=== PATIENT | female | born 1995 ===

== ENCOUNTER 2024-05-09 13:34 | Outpatient (REF) | payer OTHER, SELFPAY ==
[2024-05-09 22:22] LABS: Bacterial Vaginosis PCR NEGATIVE (Negative); Candida Group PCR NOT DETECTED (Not Detect); Candida glab krusei PCR NOT DETECTED (Not Detect); Trichomonas vaginalis PCR NOT DETECTED (Not Detect)
[2024-05-09 22:54] LABS: CT PCR NOT DETECTED (Not Detect.); NG PCR NOT DETECTED (Not Detect.)
== END 2024-05-09 13:35 | disposition home or self-care (01) ==
LOC: HO.LAB 13:34
PROVIDERS: PCP Internal Medicine; Visit Provider Advanced Practice Midwife
DX: N89.8 Other specified noninflammatory disorders of vagina (principal); Z01.419 Encounter for gynecological examination (general) (routine) without abnormal findings; Z11.51 Encounter for screening for human papillomavirus (HPV); Z72.89 Other problems related to lifestyle
CPT/HCPCS: 81515; 87255; 87491; 87591

== ENCOUNTER 2024-05-09 13:34 | Outpatient (AMB) | payer OTHER, SELFPAY ==
--- NOTE | 2024-05-09 13:59 | MHC.OFFVIS ---
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 Patient states she is diabetic and was only recently diagnosed about a month ago and she is on metformin. She tells me that she did have high blood pressure at her blood pressure was better at her visit with her doctor so she was told to stop that medicine. She brought her and child with her but they have gone elsewhere during the visit to await her completion. Patient states she moved here from the [facility] [place] about a year ago. She says she had high blood pressure in her she did have a . She says she has not had sex in about a year because her has erectile problems he is also diabetic and he uses insulin. [facility] Medical History (Updated 05/09/24 @ 15:05 by Greer Finley CNM) Diabetes Surgical History (Updated 05/09/24 @ 14:11 by Yaw Juarez CMA) S/P Family History (Updated 05/09/24 @ 14:13 by Yaw Juarez CMA) Father HTN (hypertension) Mother Diabetes HTN (hypertension) Paternal Uncle Throat cancer Social History (Updated 05/09/24 @ 14:11 by Yaw Juarez CMA) Alcohol intake: never Patient Tobacco Use Status: Never used Tobacco Female Reproductive History Menstrual Age of Menarche: 9 Duration of menses: other Date of last menstrual period: 05/14/24 (ending 05/06/23) Total pregnancies: 1 Full term: 1 History of abnormal pap smear: No (previous pap unknown date, neg .per patient) Physical Exam Vital Signs: Last Vital Signs BP 128/80 05/09/24 14:16 BMI result Body Mass Index 55.4 Const General: healthy appearing, comfortable, no acute distress, well developed and alert Nutritional Appearance: average body habitus and obese Orientation/consciousness: patient oriented x3 Limitations: no limitations HEENT Head: Yes normocephalic Neck Neck: Yes normal visual inspection Chest Chest palpation & inspection: normal inspection of the chest Breast/axilla inspection: normal inspection of the breasts and normal inspection of the axillae Breast/axilla palpation: normal palpation of the breasts and normal palpation of the axillae Resp Effort & Inspection: normal respiratory effort GI Inspection: Yes normal to inspection, No Abdominal wall edema and No distended Palpation (GI): Soft to palpation and nontender Other: Shaved there is a fresh shallow lesion which could either be consistent with a herpetic lesion or a shaving cut from this morning on patient's right labia majora it did not hurt the patient when I swabbed it for herpes culture which is more indicative of shaving cut. Vagina is pink and moist redundant vaginal tissue prevented good visualization of the cervix but it appeared pink and clear with a clear discharge from what I could see cervix extremely anterior difficult to palpate but nontender mobile uterus not palpable secondary to adipose patient did have fair to good tone with Kegel. General: Yes bladder normal to palpation External Female Exam: normal external appearance and normal appearance of the urethra Speculum Exam - Vagina: normal appearance of the vagina, normal palpation and normal vaginal discharge Speculum Exam - Cervix: normal appearance of the cervix, normal palpation and nontender Bimanual exam- vagina & uterus: normal bimanual exam, normal palpation, uterine size normal, bladder normal to palpation, consistency normal, normal palpation, uterine mobility normal, uterine shape normal, No Cervical tenderness present, non-tender and no cervical motion tenderness Bimanual Exam- Adnexa, other: normal adnexae, no masses, normal and No adnexal tenderness Neuro General: patient oriented x3 Assessment & Plan Assessment & Plan (1) Encounter for screening examination for sexually transmitted disease: Code(s): Z11.3 - Encounter for screening for infections with a predominantly sexual mode of transmission Category: Medical (2) Cervical cancer screening: Code(s): Z12.4 - Encounter for screening for malignant neoplasm of cervix Category: Medical (3) Women's annual routine gynecological examination: Code(s): Z01.419 - Encounter for gynecological examination (general) (routine) without abnormal findings Category: Medical (4) control counseling: Code(s): Z30.09 - Encounter for other general counseling and advice on contraception Category: Medical (5) Vaginal lesion: Code(s): N89.8 - Other specified noninflammatory disorders of vagina Category: Medical (6) Obesity, morbid, BMI 50 or higher: Code(s): E66.01 - Morbid (severe) obesity due to excess calories Category: Medical Plan -----Discussed in this visit the following: healthy balanced diet, regular and consistent exercise, getting recommended health screens, doing the best she can for her particular health concerns, kegel exercises, pap smear screening and followup recommendations, mammography screening and SBE, normal changes in cycles in her life stage--- . Patient says she is not interested in any kind of control because she is not sexually active I did stress to her that be very important for her to not get until she she has a healthier health status and gets her diabetes under control and loses weight. She agrees with this and says she understands and I urged her to use condoms at the very least should she resume sexual activity. ---- The vaginal lesion appeared possiblely herpetic though it did not hurt her when I swabbed it with a Q-tip for viral testing so my suspicion that it is herpetic is now much lower I did explain to her that it is possible that it is either herpetic which case we will talk more and this could be something that is longstanding or that it is simply shaving cut which is what she thinks it is. -Pap smear was done though it may be somewhat of a blind Pap smear as complete visualization of her cervix was challenge because of the excess redundant adipose tissue vaginally Discussed that if she were to consider becoming more sexually active we would need talk about a much more reliable method of control as it would really not be good for her to get until her health is in a better state she says she understands. She is going to get her fasting lab work done for her primary care provider, who was new to her as well, done tomorrow morning and this is in preparation for her appointment next Wednesday with her primary care provider to review everything she says she was told about an alistair to get the records I told her that we would let her know if anything was positive but if everything is negative it to be on the alistair though we would send her a letter about the Pap smear. I wished her well with achieving better health and getting her diabetes and weight under control I did also mentioned that it would be important to possibly have more discussions about more aggressive methods of losing weight such as medications or surgery with these are conversations for the future with her primary care provider. Discussed that it would be great for her in her to both get to healthier place. Orders: Orders Hepatitis C Antibody Today N89.8 - Other specified noninflammatory disorders of vagina, Z01.419 - Encounter for gynecological examination (general) (routine) without abnormal findings, Z11.3 - Encounter for screening for infections with a predominantly sexual mode of transmission, Z12.4 - Encounter for screening for malignant neoplasm of cervix, Z30.09 - Encounter for other general counseling and advice on contraception Syphilis Screen Today N89.8 - Other specified noninflammatory disorders of vagina, Z01.419 - Encounter for gynecological examination (general) (routine) without abnormal findings, Z11.3 - Encounter for screening for infections with a predominantly sexual mode of transmission, Z12.4 - Encounter for screening for malignant neoplasm of cervix, Z30.09 - Encounter for other general counseling and advice on contraception HIV Ab/Ag Today N89.8 - Other specified noninflammatory disorders of vagina, Z01.419 - Encounter for gynecological examination (general) (routine) without abnormal findings, Z11.3 - Encounter for screening for infections with a predominantly sexual mode of transmission, Z12.4 - Encounter for screening for malignant neoplasm of cervix, Z30.09 - Encounter for other general counseling and advice on contraception Hepatitis B Surface Antigen Today N89.8 - Other specified noninflammatory disorders of vagina, Z01.419 - Encounter for gynecological examination (general) (routine) without abnormal findings, Z11.3 - Encounter for screening for infections with a predominantly sexual mode of transmission, Z12.4 - Encounter for screening for malignant neoplasm of cervix, Z30.09 - Encounter for other general counseling and advice on contraception Coding Level of Care Code New Pt Prev Care [id number] Diagnoses Encounter for screening examination for sexually transmitted disease Z11.3 Cervical cancer screening Z12.4 Women's annual routine gynecological examination Z01.419 control counseling Z30.09 Vaginal lesion N89.8 Obesity, morbid, BMI 50 or higher E66.01
[2024-05-09 14:16] VITALS: BP 128/80; BMI 55.4
== END 2024-05-09 14:56 | disposition home or self-care (01) ==
PROVIDERS: PCP Internal Medicine; Visit Provider Advanced Practice Midwife
DX: Z01.419 Encounter for gynecological examination (general) (routine) without abnormal findings (principal); N89.8 Other specified noninflammatory disorders of vagina; E66.01 Morbid (severe) obesity due to excess calories
CPT/HCPCS: 99385; 99459

== ENCOUNTER 2024-05-09 15:40 | Outpatient (REF) | payer OTHER, SELFPAY ==
[2024-05-10 06:30] LABS: HPV 16,18/45 See PAP report
== END 2024-05-09 15:41 | disposition home or self-care (01) ==
LOC: HO.LNP 15:40
PROVIDERS: Visit Provider Advanced Practice Midwife
DX: Z01.419 Encounter for gynecological examination (general) (routine) without abnormal findings (principal)
CPT/HCPCS: 87626; 88175

== ENCOUNTER 2024-05-10 09:37 | Outpatient (REF) | payer OTHER, SELFPAY ==
[2024-05-10 10:59] LABS: Estimated Average Glucose 143 mg/dL; Hemoglobin A1C 171.5726 umol/L; Hemoglobin A1c % 6.6 % (<6.0)
[2024-05-10 11:18] LABS: Creatinine Urine 198.95 mg/dL; Microalbum/Creatinine Ratio Ur 53.7 ug/mg cr (<30)
[2024-05-10 11:22] LABS: Alanine Aminotransferase 55 U/L (0-31); Albumin Level 4.2 g/dL (3.5-5.0); Alkaline Phosphatase 83 U/L (39-117); Anion Gap 7 (12-20); Aspartate Amino Transferase 30 U/L (5-31); Bilirubin Total 0.4 mg/dL (0.0-1.0); Blood Urea Nitrogen 11 mg/dL (9-16); Calcium 9.4 mg/dL (8.4-10.2); Carbon Dioxide 30 mmol/L (22-29); Chloride 108 mmol/L (96-108); Cholesterol 138 mg/dL (<200); Estimated Glomerular Filt Rate > 60; Glucose Random 121 mg/dL (60-115); HDL Cholesterol 43 mg/dL (>40); LDL Cholesterol Calculated 77 mg/dL (<100); Potassium 4.7 mmol/L (3.3-5.1); Sodium 140 mmol/L (135-145); Thyroid Stimulating Hormone 2.43 uIU/mL (0.32-4.0); Total Protein 7.6 g/dL (6.5-8.0); Triglycerides 91 mg/dL (<150)
== END 2024-05-10 09:38 | disposition home or self-care (01) ==
LOC: HO.10HDL 09:37
PROVIDERS: Visit Provider Internal Medicine
DX: E11.9 Type 2 diabetes mellitus without complications (principal); I10 Essential (primary) hypertension; E66.01 Morbid (severe) obesity due to excess calories
CPT/HCPCS: 36415; 80053; 80061; 82043; 82570; 83036; 84443

== ENCOUNTER 2024-08-14 15:16 | Outpatient (REF) | payer OTHER, SELFPAY ==
[2024-08-14 16:05] LABS: Estimated Average Glucose 148 mg/dL; Hemoglobin A1C 166.1224 umol/L; Hemoglobin A1c % 6.8 % (<6.0); Total Hemoglobin (HGBA1C) 3265.3596 umol/L
[2024-08-14 17:34] LABS: Alanine Aminotransferase 81 U/L (0-31); Alkaline Phosphatase 83 U/L (39-117); Anion Gap 13 (12-20); Aspartate Amino Transferase 77 U/L (5-31); Bilirubin Total 0.4 mg/dL (0.0-1.0); Blood Urea Nitrogen 10 mg/dL (9-16); Calcium 9.4 mg/dL (8.4-10.2); Carbon Dioxide 27 mmol/L (22-29); Chloride 104 mmol/L (96-108); Estimated Glomerular Filt Rate > 60; Glucose Random 172 mg/dL (60-115); Potassium 4.5 mmol/L (3.3-5.1); Sodium 139 mmol/L (135-145); Total Protein 7.3 g/dL (6.5-8.0)
== END 2024-08-14 15:17 | disposition home or self-care (01) ==
LOC: HO.LAB 15:16
PROVIDERS: PCP Internal Medicine; Visit Provider Internal Medicine
DX: E11.9 Type 2 diabetes mellitus without complications (principal); E66.01 Morbid (severe) obesity due to excess calories; R74.01 Elevation of levels of liver transaminase levels; R80.8 Other proteinuria
CPT/HCPCS: 36415; 80053; 83036

== ENCOUNTER → 2024-09-25 14:44 | Outpatient (BNVA) | payer OTHER, SELFPAY | PROVIDERS: PCP Internal Medicine; Visit Provider Physician Assistant Surgical ==

== ENCOUNTER 2024-10-16 08:52 | Outpatient (AMB) | payer OTHER, SELFPAY ==
[2024-10-16 12:52] VITALS: BMI 51.4
--- NOTE | 2024-10-16 12:52 | MHC.OFFVISWM ---
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 Works overnight Breakfast: 8am (bread, boiled banana) Lunch: 2pm (rice, beans, lentil, salad) Dinner: 8pm (banana, potatoes) Snacks: one snack in afternoon, 1-2 snacks overnight (banana, scrambled eggs) Exercise: none Beverages: Coffee (1-2 cups/d with sugar), tea: none,, soda: none, juice: carott juice, ETOH: none PFSH Medical History (Updated 10/16/24 @ 12:58 by Edd Stephens MD) Anxiety Back pain Non-insulin dependent type 2 diabetes mellitus GERD (gastroesophageal reflux disease) Hypertension Morbid obesity Diabetes Surgical History (Updated 05/09/24 @ 14:11 by Yaw Juarez CMA) S/P Family History (Updated 05/09/24 @ 14:13 by Yaw Juarez CMA) Father HTN (hypertension) Mother Diabetes HTN (hypertension) Paternal Uncle Throat cancer Social History (Updated 05/09/24 @ 14:11 by Yaw Juarez CMA) Alcohol intake: never Patient Tobacco Use Status: Never used Tobacco Female Reproductive History Menstrual Age of Menarche: 9 Telehealth Telehealth Telehealth Platform: Telephone Location of provider rendering services: practice address Location of patient: address on file Patient Identification confirmed using: Name, : Yes Telehealth method: voice only Patient verbally consented to treatment: Yes Patient verbally consented to billing insurance company: Yes Patient informed of any privacy concerns related to visit: Yes Minutes spent on Phone/Video with Pt.: 45 Assessment & Plan Assessment & Plan (1) Morbid obesity: Code(s): E66.01 - Morbid (severe) obesity due to excess calories Category: Medical Plan: 1.? Plan for lap sleeve gastrectomy. If diaphragmatic or ventral hernias are present at time of surgery, these will be repaired laparoscopically as well. I emphasized the importance of close follow-up, adherence to instructions and good communication. The surgery does not replace the need to change your lifestlyle which is the cause of the obesity problem. The surgery provides the motivation to try again to change your lifestyle, it reduces the appetite and make the transition to a better lifestyle easier and doubles the amount of weight you would lose compared to doing the lifestyle change without the surgery. You will need to be on a liquid diet with protein shakes for 2 weeks before surgery to maximize weight loss and boost your nutritional status to recover better from surgery and also for the first two weeks after surgery to let the stomach heal before we introduce other foods. After the first 2 weeks we will introduce protein bars and soft foods like scrambled eggs, cottage cheese and yogurt and after the 6th week will introduce meat, fish and cooked vegetables in small amounts. Over time you should be able to eat everything in small amounts. Side effects like nausea, vomiting, heartburn or abdominal pain are not common in the practice unless you are not following in the practice. This operation requires lifetime commitment to following in our practice and communication with me. You will much less weight and experience side effects if you don?t communicate or not following in the practice. Complications are rare and in our practice is about 1/10 of the national average. However, you can develop bleeding that may require transfusion (hasn?t happened for year in the practice), you may from complications (we did not have any deaths in the practice) and infections. Infections are usually a result of breakdown in communication or not understanding or following directions correctly. They are difficult to treat, they can happen during the first 6 weeks, they may require to be in the hospital for weeks or even months, not being able to eat by mouth and you may have drains and surgeries to try and correct the issue. Other risks and complications include possible conversion to an open procedure, leaks, small bowel obstruction, blood clots, cardiac, or pulmonary complications, as jail complications such as ulcers, insufficient weight loss and vitamin deficiencies. 2.? Nutritional counseling. Start with one premade PREMIER protein (buy at [employer] or [employer]) shake (8oz of Premier shake, NOT the whole bottle) at 3pm-5pm, dinner at 6pm (10 forks of protein and 10 forks of salad/vegetables), another premade PREMIER protein shake (8oz of Premier shake, NOT the whole bottle) at 8pm-10pm, 3 protein bars (16gr Fit Crunch protein bars, buy at [employer] or [employer]) at 11pm-1am, 2am-4am and 5am-7am. So you do 2 protein shakes, 3 protein bars and one meal per day. Meal to include lean meat (beef, fish, pork, turkey, chicken), or belarusian yogurt, or egg whites, or beans with a salad with olive oil and fruits (berries, pears, apples, kiwi). Avoid salt, breads, potatoes, rice, pasta, desserts. 3. Each shake would be drunk slowly, like coffee in a period of 2 hours. 4. Cut each bar in 4 pieces and eat each piece in 30min ?to make each bar last 2 hours. 5. I emphasized the importance of measuring accurately the food portion and measure it when serving the food in plate 6. The meal portions include 10 full-size forks of meat and 10 full-size forks of salad. You always eat the meat portion but you can replace up to 5 forks for salad/vegetables with rice, potatoes or pasta, or a fruit ?if you like. The less you do it the better weight loss will be. 7. One full-size fork is what it can be scooped on the fork without falling aside and not what can be bit with the fork. Use regular forks like those you find in a typical restaurant. 8.? Please buy the body composition scale we discussed and send me weight measurements as soon as possible and then once a week. Always include your diet and exercise plan. 9. Start walking outside daily, tracking calories with a goal of 300 calories per day, daily. Goal is to burn 2000 calories per week on exercise, which means either 300 calories daily, or 400 calories 5 days per week, or 500 calories 4 days per week, or 650 calories 3 days per week. 10. The best choice would be to purchase a stationary bike, elliptical or treadmill at home that can track calories. Let me know if you do so I can give you an exercise plan. 11.?It is important of avoiding and for at least 18 months postoperatively and has been discussed at the infosession. 12. Goal is to lose at least 1.5-2lbs per week 13. Goal to lose 10% of your weight before surgery, which is about 38lbs. Ultimate weight goal: 300lbs before surgery 14. Please follow the diet plan exactly without any change. If you don't like something about the plan or you feel hungry you need to communicate with me so I can help you revise the plan. You should not change the plan yourself 15. To be scheduled for EGD to assess the stomach's anatomy. The possibility of biopsies was discussed. Patient needs to avoid use of NSAIDs and aspirin for 1 week prior to EGD. You must be on liquids only the day before your endoscopy. Risks of perforation and bleeding was discussed with the patient. This will be an outpatient procedure with IV sedation. Orders: Orders H Pylori Breath Test Today E11.9 - Type 2 diabetes mellitus without complications, E66.01 - Morbid (severe) obesity due to excess calories, I10 - Essential (primary) hypertension, K21.9 - Gastro-esophageal reflux disease without esophagitis Complete Blood Count Auto Diff Today E11.9 - Type 2 diabetes mellitus without complications, E66.01 - Morbid (severe) obesity due to excess calories, I10 - Essential (primary) hypertension, K21.9 - Gastro-esophageal reflux disease without esophagitis IRON PROFILE Today E11.9 - Type 2 diabetes mellitus without complications, E66.01 - Morbid (severe) obesity due to excess calories, I10 - Essential (primary) hypertension, K21.9 - Gastro-esophageal reflux disease without esophagitis ECG 12 lead EKG Today E11.9 - Type 2 diabetes mellitus without complications, E66.01 - Morbid (severe) obesity due to excess calories, I10 - Essential (primary) hypertension, K21.9 - Gastro-esophageal reflux disease without esophagitis FL upper GI w air Today E11.9 - Type 2 diabetes mellitus without complications, E66.01 - Morbid (severe) obesity due to excess calories, I10 - Essential (primary) hypertension, K21.9 - Gastro-esophageal reflux disease without esophagitis Insulin Today E11.9 - Type 2 diabetes mellitus without complications, E66.01 - Morbid (severe) obesity due to excess calories, I10 - Essential (primary) hypertension, K21.9 - Gastro-esophageal reflux disease without esophagitis Hemoglobin A1c Today E11.9 - Type 2 diabetes mellitus without complications, E66.01 - Morbid (severe) obesity due to excess calories, I10 - Essential (primary) hypertension, K21.9 - Gastro-esophageal reflux disease without esophagitis Lipid Panel Today E11.9 - Type 2 diabetes mellitus without complications, E66.01 - Morbid (severe) obesity due to excess calories, I10 - Essential (primary) hypertension, K21.9 - Gastro-esophageal reflux disease without esophagitis Comprehensive Met. Panel Today E11.9 - Type 2 diabetes mellitus without complications, E66.01 - Morbid (severe) obesity due to excess calories, I10 - Essential (primary) hypertension, K21.9 - Gastro-esophageal reflux disease without esophagitis Vitamin B12 and Folate Today E11.9 - Type 2 diabetes mellitus without complications, E66.01 - Morbid (severe) obesity due to excess calories, I10 - Essential (primary) hypertension, K21.9 - Gastro-esophageal reflux disease without esophagitis Zinc Today E11.9 - Type 2 diabetes mellitus without complications, E66.01 - Morbid (severe) obesity due to excess calories, I10 - Essential (primary) hypertension, K21.9 - Gastro-esophageal reflux disease without esophagitis C Reactive Protein Today E11.9 - Type 2 diabetes mellitus without complications, E66.01 - Morbid (severe) obesity due to excess calories, I10 - Essential (primary) hypertension, K21.9 - Gastro-esophageal reflux disease without esophagitis Vitamin B1 Today E11.9 - Type 2 diabetes mellitus without complications, E66.01 - Morbid (severe) obesity due to excess calories, I10 - Essential (primary) hypertension, K21.9 - Gastro-esophageal reflux disease without esophagitis Vitamin A Today E11.9 - Type 2 diabetes mellitus without complications, E66.01 - Morbid (severe) obesity due to excess calories, I10 - Essential (primary) hypertension, K21.9 - Gastro-esophageal reflux disease without esophagitis TSH reflex Free T4 Today E11.9 - Type 2 diabetes mellitus without complications, E66.01 - Morbid (severe) obesity due to excess calories, I10 - Essential (primary) hypertension, K21.9 - Gastro-esophageal reflux disease without esophagitis Ferritin Today E11.9 - Type 2 diabetes mellitus without complications, E66.01 - Morbid (severe) obesity due to excess calories, I10 - Essential (primary) hypertension, K21.9 - Gastro-esophageal reflux disease without esophagitis Vitamin D 25-OH Total Today E11.9 - Type 2 diabetes mellitus without complications, E66.01 - Morbid (severe) obesity due to excess calories, I10 - Essential (primary) hypertension, K21.9 - Gastro-esophageal reflux disease without esophagitis US abdomen comp w elastography Today E11.9 - Type 2 diabetes mellitus without complications, E66.01 - Morbid (severe) obesity due to excess calories, I10 - Essential (primary) hypertension, K21.9 - Gastro-esophageal reflux disease without esophagitis XR chest 2V Today E11.9 - Type 2 diabetes mellitus without complications, E66.01 - Morbid (severe) obesity due to excess calories, I10 - Essential (primary) hypertension, K21.9 - Gastro-esophageal reflux disease without esophagitis Referrals Behavioral Health Referral E11.9 - Type 2 diabetes mellitus without complications, E66.01 - Morbid (severe) obesity due to excess calories, I10 - Essential (primary) hypertension, K21.9 - Gastro-esophageal reflux disease without esophagitis Nutrition/Dietitian Referral E11.9 - Type 2 diabetes mellitus without complications, E66.01 - Morbid (severe) obesity due to excess calories, I10 - Essential (primary) hypertension, K21.9 - Gastro-esophageal reflux disease without esophagitis Medications: New tirzepatide (weight loss) (Zepbound) for 4 weeks 2.5 mg (0.5 mL) subcut QWEEK 2 mL 0RF E66.01 - Morbid (severe) obesity due to excess calories
== END 2024-10-16 13:35 | disposition home or self-care (01) ==
LOC: HO.HBS 08:52
PROVIDERS: PCP Internal Medicine; Visit Provider Surgery
DX: E66.01 Morbid (severe) obesity due to excess calories (principal); Z68.43 Body mass index [BMI] 50.0-59.9, adult
CPT/HCPCS: 98010

== ENCOUNTER 2024-10-26 10:13 | Day surgery (SDC) | payer OTHER, SELFPAY ==
[2024-10-24 11:01] VITALS: BMI 51.4
[2024-10-26 10:26] VITALS: BMI 50.6
[2024-10-26 10:40] LABS: UPreg QC Valid YES
[2024-10-26 10:45] VITALS: BP 137/81; PULSE 98; RESP 18; TEMP 36.8; O2SAT 95
[2024-10-26 10:47] LABS: Glucose, Whole Blood 117 mg/dL (60-115)
[2024-10-26] MEDS: Lactated Ringers 1,000 ML 100 ML IVCONT (10:47)
--- NOTE | 2024-10-26 11:55 | P.CONAN_ITS ---
Documented by User: Iliana Arteaga NP 10/24/24 13:03 HPI - Anesthesia Eval Consult details Narrative: 29yo F for Upper Endoscopy BMI 51 Anesthesia Pre-Procedure Meds Is the patient on any of the following meds?: GLP1/DPP4 PMFSH Active Problems Active Problems: All Active Problems Anxiety (Acute) Back pain (Acute) Non-insulin dependent type 2 diabetes mellitus (Acute) GERD (gastroesophageal reflux disease) (Acute) Hypertension (Acute) Morbid obesity (Acute) Obesity, morbid, BMI 50 or higher (Acute) Vaginal lesion (Acute) control counseling (Acute) Women's annual routine gynecological examination (Acute) Cervical cancer screening (Acute) Encounter for screening examination for sexually transmitted disease (Acute) Past Medical History Medical History (Updated 10/16/24 @ 12:58 by Edd Stephens MD) Anxiety Back pain Non-insulin dependent type 2 diabetes mellitus GERD (gastroesophageal reflux disease) Hypertension Morbid obesity Diabetes Family History Family History (Updated 05/09/24 @ 14:13 by Yaw Juarez CMA) Father HTN (hypertension) Mother Diabetes HTN (hypertension) Paternal Uncle Throat cancer Surgical History Surgical History (Updated 05/09/24 @ 14:11 by Yaw Juarez CMA) S/P Social History Social History (Updated 05/09/24 @ 14:11 by Yaw Juarez CMA) Alcohol intake: never Patient Tobacco Use Status: Never used Tobacco Use of substances other than those prescribed or required for medical reasons: No Advance Directives: No Advance Directives Information Provided: Yes Meds Allergies Allergy/AdvReac Type Severity Reaction Status Date / Time No Known Allergies Allergy Verified 10/24/24 16:15 Home Medications ?Medication ?Instructions ?Recorded ?Confirmed ?Last Taken ?Type metformin 500 mg tablet 500 mg PO BID 05/09/2410/24 1 Day Ago History ~10/25/24 losartan 25 mg tablet 25 mg PO DAILY 09/25/2405/20 Unknown History Exam Height,Weight and Vital Signs: Height 5 ft 8 in Weight 153.314 kg Assessment and Plan Assessment Anesthesia Assessment: Chart Reviewed Documented by User: Ashley Tao DO 10/26/24 11:56 HPI - Anesthesia Eval Anesthesia Pre-Procedure Meds Is the patient on any of the following meds?: GLP1/DPP4 [facility] Past Medical History Medical History (Updated 10/16/24 @ 12:58 by Edd Stephens MD) Anxiety Back pain Non-insulin dependent type 2 diabetes mellitus GERD (gastroesophageal reflux disease) Hypertension Morbid obesity Diabetes Family History Family History (Updated 05/09/24 @ 14:13 by Yaw Juarez CMA) Father HTN (hypertension) Mother Diabetes HTN (hypertension) Paternal Uncle Throat cancer Family history of problems with anesthesia: No Surgical History Surgical History (Updated 05/09/24 @ 14:11 by Yaw Juarez CMA) S/P History of Problems with Anesthesia: No Social History Social History (Updated 05/09/24 @ 14:11 by Yaw Juarez CMA) Alcohol intake: never Patient Tobacco Use Status: Never used Tobacco Use of substances other than those prescribed or required for medical reasons: No Advance Directives: No Advance Directives Information Provided: Yes Meds Allergies Allergy/AdvReac Type Severity Reaction Status Date / Time No Known Allergies Allergy Verified 10/24/24 16:15 Home Medications ?Medication ?Instructions ?Recorded ?Confirmed ?Last Taken ?Type metformin 500 mg tablet 500 mg PO BID 05/09/2410/24 1 Day Ago History ~10/25/24 losartan 25 mg tablet 25 mg PO DAILY 09/25/2405/20 Unknown History Exam Exam Date and Time: 10/26/24 1154 Height,Weight and Vital Signs: Height 5 ft 8 in Weight 153.314 kg Vital Signs Temperature 98.2 F 10/26/24 10:45 Pulse Rate 98 10/26/24 10:45 Respiratory Rate 18 10/26/24 10:45 Blood Pressure 137/81 10/26/24 10:45 Pulse Oximetry 95 10/26/24 10:45 Oxygen Delivery Method Room Air 10/26/24 10:45 Temperature 98.2 F 10/26/24 10:45 Pulse Rate 98 10/26/24 10:45 Respiratory Rate 18 10/26/24 10:45 Blood Pressure 137/81 10/26/24 10:45 Pulse Oximetry 95 10/26/24 10:45 Oxygen Delivery Method Room Air 10/26/24 10:45 Airway Mallampati Class: III TM Dist: <=3cm Neck ROM: Full Loose/Missing/Broken Teeth: Yes (several broken molars on the rigth lower jaw) Heart: S1S2 Lungs: CTAB Assessment and Plan Assessment Anesthesia Assessment: Anesthesia Plan Discussed and Chart Reviewed Final Anesthetic Review Family History of Problems with Anesthesia: No History of Problems with Anesthesia: No NPO: Yes ASA Class: III Final Preanesthetic Review: No Changes in Pt Med Stat, Meds/Allgs Chart Reviewed, Consent Obtained/Reviewed and Anes Risks/Benef Reviewed Patient Risk: Intermediate Procedure Risk: Low Anesthetic Plan Anesthetic Plan: MAC: and Agree w/ Assess. and Plan Disposition: Standard PACU
--- NOTE | 2024-10-26 12:20 | MHC.SHP ---
Pre-Procedural Eval Section A - 24 Hr Update-Section A only Date of Service: 10/26/24 The patient is an INPATIENT: No The patient has been examined within 24 hours of the surgical procedure. The History & Physical has been completed within 30 days and I have reviewed it.: No Section B - Complete if H&P > 30 days Chief Complaint: Morbid (severe) obesity due to excess calories Details of Present Illness: GERD Relevant Family History (Specify if Yes): No Relevant Social History: None Present Medications: None Medical History: No relevant PMH History of Previous Operations: No relevant previous surgery Allergies: Allergies Allergy/AdvReac Type Severity Reaction Status Date / Time No Known Allergies Allergy Verified 10/24/24 16:15 Review of Systems Sugical H&P ROS: Negative: Constitution, Cardiovascular, Respiratory, Neurological, Psychiatric, Hem-Onc, Allergic/Immunologic, Gastrointestinal, Genitourinary, Musculoskeletal, Integumentary, Endocrine and Eyes/Ears/Nose/Throat Exam Surgical H&P Exam: Normal: HEENT, Normal: Heart, Normal: Lungs, Normal: Extremities, Normal: Abdomen, Normal: Skin and Normal: Neurological Plan Diagnosis/Plan: Unchanged (EGD to assess etiology of GERD. Risks of bleeding and perforation were discussed with the patient and she is in agreement with the plan.) I have reviewed the history and physical and performed a pertinent physical examination on my patient. No changes have occurred unless specified. Time Spent With Patient Time: Total time managing care of this patient today ____ minutes.
--- NOTE | 2024-10-26 12:25 | P.BOP_ITS ---
Brief Operative Note Date of Service: 10/26/24 Pre-op diagnosis: GERD Post-op diagnosis: same Procedure: PROCEDURE DATE: 10/26/2024 PREOPERATIVE DIAGNOSIS: GERD POSTOPERATIVE DIAGNOSIS: ?Same as above. Normal endoscopy PROCEDURE: [id number]-wljomc-ayzorwffodgo with biopsies Surgeon: Liana Stephens M.D.. Ph.D. Adult Neuropsychologist: None ? Anesthesia: IV sedation Estimated blood loss: ?Minimal FINDINGS AND PROCEDURE: ? OPERATIVE INDICATIONS: ?The patient is a 29 year old female known to me who is interested in bariatric surgery. The patient has GERD.. Based on this information I recommended an upper endoscopy to evaluate the patient's symptoms. Risks and complications of the surgery were discussed with the patient in advance particularly the possibility of perforation or bleeding that may require surgical intervention. The patient understood the risks and was in agreement with the plan. ? PROCEDURE: After informed consent was obtained by the patient, the patient was ?transferred to the Operating Room and was placed in the supine position.? After successful induction of IV sedation, a mouth block was inserted and the patient was placed in the left lateral decubitus position. An upper endoscopy was performed next, the oropharynx and esophagus appeared within the normal limits. There was no hiatal hernia. The z-line was smooth. Two biopsies were obtained from the distal esophagus 2-3 cm proximal to the GE junction and two additional biopsies from the GE junction. The stomach was entered and it appeared to be of normal size. There was no gastritis. There was no stricture or ulcer. A biopsy was obtained from the gastric fundus and the antrum. No significant bleeding was noted from any of the biopsy sites. Retroflexion of the scope confirmed a normal GE junction. The scope was then advanced into the duodenum which appeared to be normal as well. At that point the duodenum ?and the stomach were decompressed and the scope was withdrawn from the patient's mouth. The patient extubated and was transferred in stable condition to the Recovery Room for further care. I was present and performed all steps of the procedure. There were no residents to assist with this case. Miko Stephens M.D., Ph.D. Surgeon: Edd Stephens MD Anesthesia: MAC Was an Adult Neuropsychologist used for this Procedure?: No Estimated blood loss (mL): 0 IV fluids (mL): 400 Urine output (mL): 0 (No Roger to record output) Pathology: other (1) antrum x1, 2) fundus x1, 3) GE junction x2, 4) distal esophagus x2) Condition: stable Disposition: PACU
[2024-10-26 12:41] VITALS: BP 146/87; PULSE 101; RESP 16; TEMP 37.1; O2SAT 94
[2024-10-26 12:55] VITALS: BP 119/80; PULSE 95; RESP 24; O2SAT 93
[2024-10-26 13:04] VITALS: BP 119/80; PULSE 91; RESP 18; TEMP 36.8; O2SAT 94
== END 2024-10-26 13:28 | disposition home or self-care (01) ==
PROVIDERS: Nurse Practitioner; PCP Internal Medicine; Visit Provider Surgery
PROC: 0DJ08ZZ Inspection of Upper Intestinal Tract, Via Natural or Artificial Opening Endoscopic (ICD-10-PCS; CPT 43235; principal; 2024-10-26 13:40)
DX: K21.9 Gastro-esophageal reflux disease without esophagitis (principal); E66.01 Morbid (severe) obesity due to excess calories; Z68.43 Body mass index [BMI] 50.0-59.9, adult; K29.50 Unspecified chronic gastritis without bleeding; B96.81 Helicobacter pylori [H. pylori] as the cause of diseases classified elsewhere; I10 Essential (primary) hypertension; E11.9 Type 2 diabetes mellitus without complications; M54.9 Dorsalgia, unspecified; F41.9 Anxiety disorder, unspecified; Z79.84 Long term (current) use of oral hypoglycemic drugs; Z79.899 Other long term (current) drug therapy
CPT/HCPCS: 43239; 81025; 82947; 88305; 88313; 88342; J2704

== ENCOUNTER → 2024-10-26 10:13 | Outpatient (BNV) | payer OTHER, SELFPAY | PROVIDERS: PCP Internal Medicine; Visit Provider Surgery | DX: K21.9 Gastro-esophageal reflux disease without esophagitis (principal) | CPT/HCPCS: 43239 ==

== ENCOUNTER → 2024-11-08 09:24 | Outpatient (REF) | payer OTHER, SELFPAY ==
--- NOTE | ~2024-11-08 | XR_ITS ---
CLINICAL HISTORY: E66.01 - Morbid (severe) obesity due to excess calories 2 view chest x-ray Comparison: None provided Findings: Lungs are clear without acute infiltrates. No pneumothorax. Heart size normal. No acute bony abnormalities. Impression: No acute processes This document has been electronically signed by: James Castaneda MD on 11/08/2024 19:19:18
--- NOTE | 2024-11-08 09:32 | ECG_ITS ---
Test Reason : e66.01 Blood Pressure : */* mmHG Vent. Rate : 81 BPM Atrial Rate : 81 BPM P-R Int : 152 ms QRS Dur : 84 ms QT Int : 366 ms P-R-T Axes : 33 -11 2 degrees QTcB Int : 425 ms Normal sinus rhythm Minimal voltage criteria for LVH, may be normal variant ( R in aVL ) Borderline ECG No previous ECGs available Referred By: Edd Stephens Electronically Signed By: HERB DEE
[2024-11-08 10:03] LABS: MANUAL DIFF FLAG NO
[2024-11-08 10:11] LABS: Hematocrit 36.8 % (37.0-47.0); Hemoglobin 12.0 g/dl (12.0-16.0); Imm Gran Abs Auto 0.03 X10*3/uL (0.00-0.03); Imm Gran Pct Auto 0.3 % (0.0-0.4); Lymphocytes Absolute Auto 2.9 X10*3/uL (1.2-4.9); Mean Corpuscular HGB Conc 32.6 g/dl (31.0-35.0); Mean Corpuscular Hemoglobin 30.4 pg (27.0-33.0); Mean Corpuscular Volume 93.2 fL (80.0-98.0); NRBC Abs Auto 0.000 X10*3/uL (0.0-0.012); NRBC Pct Auto 0.0 /100WBC (0.0-0.2); Platelet Count 286 X10*3/uL (160-400); Red Blood Count 3.95 X10*6/uL (4.20-5.50); White Blood Count 9.7 X10*3/uL (4.8-10.8)
[2024-11-08 10:17] LABS: Hemoglobin A1C 152.2129 umol/L; Total Hemoglobin (HGBA1C) 3181.4792 umol/L
[2024-11-08 11:25] LABS: Alanine Aminotransferase 58 U/L (0-31); Albumin Level 4.2 g/dL (3.5-5.0); Alkaline Phosphatase 60 U/L (39-117); Anion Gap 12 (12-20); Aspartate Amino Transferase 45 U/L (5-31); Blood Urea Nitrogen 8 mg/dL (9-16); Calcium 8.9 mg/dL (8.4-10.2); Carbon Dioxide 24 mmol/L (22-29); Chloride 107 mmol/L (96-108); Cholesterol 142 mg/dL (<200); Estimated Glomerular Filt Rate > 60; HDL Cholesterol 44 mg/dL (>40); Iron 58 mcg/dL (30-160); Percent Iron Saturation 18 % (15-50); Potassium 3.7 mmol/L (3.3-5.1); Sodium 139 mmol/L (135-145); Total Iron Binding Capacity 315 mcg/dL (228-428); Total Protein 7.1 g/dL (6.5-8.0); Triglycerides 60 mg/dL (<150); Unsaturated Iron Binding 257 ug/dL
[2024-11-08 11:33] LABS: Ferritin 180 ng/mL (10-122)
[2024-11-08 11:53] LABS: Folate 12.1 ng/mL (> or = 4.0); Vitamin B12 585 pg/mL (200-900)
== END ==
LOC: HO.CARD 09:24
PROVIDERS: PCP Internal Medicine; Visit Provider Surgery
DX: E66.01 Morbid (severe) obesity due to excess calories (principal); E11.9 Type 2 diabetes mellitus without complications; I10 Essential (primary) hypertension; K21.9 Gastro-esophageal reflux disease without esophagitis
CPT/HCPCS: 36415; 71046; 80053; 80061; 82306; 82607; 82728; 82746; 83036; 83525; 83540; 84425; 84443; 84590; 84630; 85025; 86140; 93005

== ENCOUNTER → 2024-11-08 09:32 | Outpatient (BNV) | payer OTHER, SELFPAY | PROVIDERS: PCP Internal Medicine; Visit Provider Internal Medicine | DX: E66.01 Morbid (severe) obesity due to excess calories (principal) | CPT/HCPCS: 93010 ==

== ENCOUNTER → 2024-11-08 10:03 | Outpatient (BNV) | payer OTHER, SELFPAY | PROVIDERS: PCP Internal Medicine; Visit Provider Radiology Diagnostic Radiology | DX: E66.01 Morbid (severe) obesity due to excess calories (principal) | CPT/HCPCS: 71046 ==

== ENCOUNTER 2024-11-10 14:17 | Outpatient (AMB) | payer OTHER, SELFPAY ==
--- NOTE | 2024-11-10 14:05 | A.OFFWM_ITS ---
Intake Intake Visit Reasons: VIDEO BH Intake Allergies No Known Allergies Allergy (Verified 10/24/24 16:15) [facility] Medical History (Updated 11/10/24 @ 13:16 by Edd Stephens MD) Anxiety Back pain Non-insulin dependent type 2 diabetes mellitus GERD (gastroesophageal reflux disease) Hypertension Morbid obesity Diabetes Surgical History (Updated 05/09/24 @ 14:11 by Yaw Juarez CMA) S/P Family History (Updated 05/09/24 @ 14:13 by Yaw Juarez CMA) Father HTN (hypertension) Mother Diabetes HTN (hypertension) Paternal Uncle Throat cancer Social History (Updated 05/09/24 @ 14:11 by Yaw Juarez CMA) Alcohol intake: never Patient Tobacco Use Status: Never used Tobacco Female Reproductive History Menstrual Age of Menarche: 9 Behavioral Health Assessment Weight Management Therapy Therapy Notes Details The patient is a 29-year-old female presenting for her initial appointment to begin a behavioral health evaluation as part of the surgical weight loss program. She reports being referred by her primary care physician due to her diabetes and hypertension, with the goal of improving her overall health. Presenting Concerns Referral Source WMP-Provider. Reason for referral Completion of behavioral health assessment as part of process for weight-loss surgery. Precipitating Event Obesity Living Situation Current Living Situation Rent At risk of losing current housing? No Satisfied with current living situation? Yes Comments PT lives with her and their child. Food/Weight/Diet History/Relationship with food Hx of stress/emotional eating. Social History Family history and relationship PT is 5 years ago, and they have a 4-year-old son. Parents are alive. She has 5 siblings. 1 brother lives in [place], the rest of her family lives in . PT reports good family relationships. Parental/Familial eap consultant obligations None. Developmental history and status None reported. Currently WNL. Social support , family in , a close friend in the area. Community support None Advent/Spirituality Raised as Faith but doesn't practice. currently visits an Gnosticist scientology. Cultural/Ethnic information PT is from the [place], she moved to [place] 2 years ago. Legal Involvement and History Current or historical involvement with the legal system? None reported Education Highest grade completed HS Preferred learning style Visual Currently enrolled in educational program? No Interested in further educational program? Yes Educational Interests/Skills Want to do ESL classes. Employment Employment Status Unemployed Wants help to find employment? No Meaningful activities Outdoor activities, listen to music, and read the bible. Financial Situation Describe current financial situation Often struggles with finance Financial assistance? Food [place] Service Service? No Mental Health and Addiction Treatment Current/Past substance abuse? No Comments Alcohol: None Cigarettes/Tobacco: None Cannabis/Edibles: None. Current/Past addictive behavior concerns? No Psychiatric history Never been in [facility]. Denies any concerns or history of SI, SA, self-harm or other-harm. Medical and Physical Health Summary Additional Medical History not covered in history None aditional Sexual History concerns None reported Physical exam in the last year? Yes Pain Screening Current pain? Yes Pain in the last few months? Yes Comments hip pain. Questionnaires PHQ-9 Over the last 2 weeks, how often have you been bothered by any of the following problems? 1. Little interest or pleasure in doing things: more than half the days 2. Feeling down, depressed, or hopeless: several days 3. Trouble falling or staying asleep, or sleeping too much: several days 4. Feeling tired or having little energy: more than half the days 5. Poor appetite or overeating: not at all 6. Feeling bad about yourself - or that you are a failure or have let yourself or your family down: not at all 7. Trouble concentrating on things, such as reading the newspaper or watching television: not at all 8. Moving or speaking so slowly that other people could have noticed. Or the opposite - being so fidgety or restless that you have been moving around a lot more than usual: not at all 9. Thoughts that you would be better off or of hurting yourself in some way: not at all Total score: 6 Depression Screening Interpretation: Positive (From new PT pack completed on 09/25/24) Depression Screening Done: Yes Source: Developed by Drs. Som Sanchez, Elisha Villatoro, Patricio Guerra and colleagues, with an educational rowdy from [employer]. Assessment & Plan Assessment & Plan (1) Adjustment disorder: Code(s): F43.20 - Adjustment disorder, unspecified (2) Pre-bariatric surgery psychological evaluation: Code(s): Z71.89 - Other specified counseling Plan The patient was not cleared today as the assessment was not completed. The patient will return in 2-4 weeks to continue the evaluation. Next appointment: 12/04/24 at 11am - Video Telehealth Telehealth Telehealth Platform: [place] Location of provider rendering services: practice address Location of patient: address on file Patient Identification confirmed using: Name, : Yes Telehealth method: video Patient verbally consented to treatment: Yes Patient verbally consented to billing insurance company: Yes Patient informed of any privacy concerns related to visit: Yes Minutes spent on Phone/Video with Pt.: 50 Coding Level of Care Code New Pt Tele Psy Diag Eval ([id number]) Patient Type New Diagnoses Adjustment disorder F43.20 Pre-bariatric surgery psychological evaluation Z71.89 Time Spent (min) 50
== END 2024-11-10 15:06 | disposition home or self-care (01) ==
LOC: HO.HBST 14:17
PROVIDERS: PCP Internal Medicine; Visit Provider Counselor Mental Health
DX: F43.20 Adjustment disorder, unspecified (principal); Z71.89 Other specified counseling
CPT/HCPCS: 90791

== ENCOUNTER 2024-12-04 11:12 | Outpatient (AMB) | payer OTHER, SELFPAY ==
--- NOTE | 2024-12-04 11:09 | A.OFFWM_ITS ---
Intake Intake Visit Reasons: VIDEO Intake Part 2 Allergies No Known Allergies Allergy (Verified 10/24/24 16:15) [facility] Medical History (Updated 11/10/24 @ 13:16 by Edd Stephens MD) Anxiety Back pain Non-insulin dependent type 2 diabetes mellitus GERD (gastroesophageal reflux disease) Hypertension Morbid obesity Diabetes Surgical History (Updated 05/09/24 @ 14:11 by Yaw Juarez [facility]) S/P Family History (Updated 05/09/24 @ 14:13 by Yaw Juarez [facility]) Father HTN (hypertension) Mother Diabetes HTN (hypertension) Paternal Uncle Throat cancer Social History (Updated 05/09/24 @ 14:11 by Yaw Juarez [facility]) Alcohol intake: never Patient Tobacco Use Status: Never used Tobacco Female Reproductive History Menstrual Age of Menarche: 9 Behavioral Health Assessment Weight Management Therapy Therapy Notes Details The patient is a 29-year-old female presenting for a follow-up appointment to complete the behavioral health assessment as part of the surgical weight loss program. She was referred by her primary care physician due to diabetes and hypertension, with the goal of improving her overall health. She began the program on 10/16/2024 at 338 lbs, with an initial goal to lose 10% of her body weight (approximately 38 lbs) prior to surgery. Her most recent weight, recorded on 12/01/2024, is 324 lbs. The patient reports a lifelong struggle with weight and does not recall being under 200 lbs as an adult. She identifies overeating to avoid food waste and occasional stress eating as contributing factors. She denies any history of mental health treatment, psychiatric hospitalizations, or behavioral health crises. There is no history or current concern regarding suicidal ideation, suicide attempts, self-harm, harm to others, or substance use. Assessment measures indicate low risk for binge eating (BES) and no active depressive symptoms (PHQ-9). Mental status exam is within normal limits, with no evidence of functional impairment. The patient is cleared from a behavioral health perspective for participation in the surgical weight loss program. Presenting Concerns Referral Source WMP-Provider. Reason for referral Completion of behavioral health assessment as part of process for weight-loss surgery. Precipitating Event Obesity Living Situation Current Living Situation Rent At risk of losing current housing? No Satisfied with current living situation? Yes Comments PT lives with her and their child. Food/Weight/Diet Expectations of change PT started the program on 10/16/2024 at 338Lbs, and the initial goal is to lose 10% of her weight before surgery, which is about 38lbs. Ultimate weight goal: 300lbs before surgery. Reports her most recent weight was 324Lbs as of Wednesday12/01/24. PT would like to be at a healthy BMI and no longer have diabetes and hypertension. PT is implementing the following: Current meal plan: 2 protein shakes, 3 protein bars, and one meal per day. Exercise plan: Daily walking. scale: yes Communication with provider: Fridays. History/Relationship with food Hx of stress/emotional eating. Would repeat, have bigger portions, and at times overeat, and will eat any leftovers as she cooks daily because they like fresh foods. Example of meals before starting the program: Breakfast: 8am (bread with eggs or boiled banana w/ eggs) Lunch: 2pm (rice, beans/lentils, meat, salad) Dinner: 8 pm (Same as lunch or fried plantains) Snacks: one snack in the afternoon, 1-2 snacks overnight (2-3 fruits, chips) Beverages: Coffee:1-2 cups/d with sugar. Tea: none. Soda: none. Juice: carrot juice, ETOH: none History/Relationship with weight PT reported she has always been [place] and always looked older than she was. For example at age 9 she looked like she was 14. She doesn't remember the last time she was under 200Lbs, believes it was as a teen. 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 Diets. Binge Eating Do you frequently eat large amounts of food in short periods of time, not feeling physically hungry? Yes Do you feel out of control when you eat a large amount of food in a short period of time? Yes Do you eat large amounts of food rapidly and typically alone? Yes Night Eating Do you wake up at least once during the night to eat? No If you wake up in the night, do you find that it is necessary to eat something in order to fall back asleep? No Do you have little or no appetite in the morning and feel very hungry in the evening, often overeating between dinner and when you go to bed? Yes Social History Family history and relationship PT is 5 years ago, and they have a 4-year-old son. Parents are alive. She has 5 siblings. 1 brother lives in [place], the rest of her family lives in . PT reports good family relationships. 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 Developmental history and status None reported. Currently [place]. Social support , family in , a close friend in the area. Community support None Worship/Spirituality Raised as [place]ism but doesn't practice. currently visits an Christianity latter day. Cultural/Ethnic information PT is from the [place], she moved to [place] 2 years ago. Legal Involvement and History Current or historical involvement with the legal system? None reported Education Highest grade completed HS Preferred learning style Visual Currently enrolled in educational program? No Interested in further educational program? Yes Educational Interests/Skills Want to do ESL classes. Employment Employment Status Unemployed Wants help to find employment? No Meaningful activities Outdoor activities, listen to music, and read the bible. Financial Situation Describe current financial situation Often struggles with finance Financial assistance? Food [place] Service Service? No Mental Health and Addiction Treatment Current/Past substance abuse? No Comments Alcohol: None Cigarettes/Tobacco: None Cannabis/Edibles: None. Current/Past addictive behavior concerns? No Psychiatric history Never been in [facility]. Denies any concerns or history of SI, SA, self-harm or other-harm. Medical and Physical Health Summary Additional Medical History not covered in history None aditional Sexual History concerns None reported Physical exam in the last year? Yes Pain Screening Current pain? Yes Pain in the last few months? Yes Comments hip pain. Medications Is the patient compliant with medications? Yes Does the patient have Bui Guardian in place? Not applicable Does the patient use complimentary health approaches? No Trauma/Abuse History History of trauma? No Questionnaires PHQ-9 Over the last 2 weeks, how often have you been bothered by any of the following problems? 1. Little interest or pleasure in doing things: not at all 2. Feeling down, depressed, or hopeless: not at all 3. Trouble falling or staying asleep, or sleeping too much: not at all 4. Feeling tired or having little energy: several days 5. Poor appetite or overeating: not at all 6. Feeling bad about yourself - or that you are a failure or have let yourself or your family down: not at all 7. Trouble concentrating on things, such as reading the newspaper or watching television: not at all 8. Moving or speaking so slowly that other people could have noticed. Or the opposite - being so fidgety or restless that you have been moving around a lot more than usual: not at all 9. Thoughts that you would be better off or of hurting yourself in some way: not at all Total score: 1 Depression Screening Interpretation: Negative Depression Screening Done: Yes 15504 - PHQ-9 Billing: Yes Source: Developed by Drs. Som Sanchez, Elisha Villatoro, Patricio Guerra and colleagues, with an educational rowdy from [employer]. Binge Eating Scale Group 1 A. I don't feel self-conscious about my wt. or body size when I'm with others. B. I feel concerned about how I look to others, but it normally does not make me fell disappointed with myself C. I do get self-conscious about my appearance and wt. which makes me feel disappointed in myself. D. I feel very self-conscious about my wt. and frequently I feel intense shame and disgust for myself. I try to avoid social contacts because of my self- consciousness. Response Group 1: B Group 2 A. I don't have any difficulty eating slowly in the proper manner. B. Although I seem to gobble down foods, I don't end up feeling stuffed because of eating to much. C. At times, I tend to eat quickly and then, I feel uncomfortably full afterwards. D. I have the habit of bolting down my food, without really chewing it. When this happens I usually feel uncomfortably stuffed because I've eaten to much. Response Group 2: C Group 3 A. I feel capable to control my eating urges when I want to. B. I feel like I have failed to control my eating more than the average person. C. I feel utterly helpless when it comes to feeling in control of my eating urges. D. Because I feel so helpless about controlling my eating I have become very desperate about trying to get control. Response Group 3: D Group 4 A. I don't have the habit of eating when I'm bored. B. I sometimes eat when I'm bored, but often I'm able to get busy and get my mind off food. C. I have a regular habit of eating when I'm bored, but occasionally, I can use some other activity to get my mind off eating. D. I have a strong habit of eating when I'm bored. Nothing seems to help me breath the habit. Response Group 4: A Group 5 A. I'm usually physically hungry when I eat something. B. Occasionally, I eat something on impulse even though I really am not hungry. C. I have the regular habit of eating foods, that I might not really enjoy, to satisfy a hungry feeling even though physically, I don't need the food. D. Although I'm not physically hungry, I get a hungry feeling in my mouth that only seems to be satisfied when I eat a food, like sandwich, that fills my mouth. Sometimes, when I eat the food to satisfy my mouth hunger, I then spit the food out so I won't gain weight. Response Group 5: A Group 6 A. I don't feel any guilt or self-hate after I overeat. B. After I overeat, occasionally I feel guilt or self-hate. C. Almost all the time I experience strong guilt or self-hate after I overeat. Response Group 6: A Group 7 A. I don't lose total control of my eating when dieting even after periods when I overeat. B. Sometimes when I eat a forbidden food on a diet, I feel like I blew it and eat even more. C. Frequently, I have the habit of saying to myself, I've blown it now, why not go all the way, when I overeat on a diet. When that happens I eat more. D. I have a regular habit of starting a strict diets for myself but I break the diets by going on an eating binge. My life seems to be either a feast or famine. Response Group 7: A Group 8 A. I rarely eat so much food that I feel uncomfortably stuffed afterwards. B. Usually about once a month, I each such a quantity of food, I end up feeling very stuffed. C. I have regular periods during the month when I eat large amounts of food, either at mealtime or at snacks. D. I eat so much food that I regularly feel quite uncomfortable after eating and sometimes a bit nauseous. Response Group 8: C Group 9 A. My level of calorie intake does not go up very high or go down very low on a regular basis. B. Sometimes after I overeat, I will try to reduce my caloric intake to almost nothing to compensate for the excess calories I've eaten. C. I have a regular habit of overeating during the night. It seems that my routine is not to be hungry in the morning but overeat in the evening. D. In my adult years, I have had week-long periods where I practically starve myself. This follows periods when I overeat. It seems I live a life of either feast or famine. Response Group 9: B Group 10 A. I usually am able to stop eating when I want to. I know when enough is enough. B. Every so often, I experience a compulsion to eat which I can't seem to control. C. Frequently, I experience strong urges to eat which I seem unable to control, but at other times I can control my eating urges. D. I feel incapable of controlling urges to eat. I have a fear of not being able to stop eating voluntarily. Response Group 10: A Group 11 A. I don't have any problem stopping eating when I feel full. B. I usually can stop eating when I feel full but occasionally overeat leaving me feeling uncomfortably stuffed. C. I have a problem stopping eating once I start and usually I feel uncomfortably stuffed after I eat a meal. D. Because I have a problem not being able to stop eating when I want, I sometimes have to induce vomiting to relieve my stuffed feeling. Response Group 11: A Group 12 A. I seem to eat just as much when I'm with others, Family social gatherings as when I'm by myself. B. Sometimes, when I'm with other persons, I don't eat as much as I want to eat because I'm self-conscious about my eating. C. Frequently, I eat only a small amount of food when others are present, because I'm very embarrassed about my eating. D. I feel so ashamed about overeating that I pick times to overeat when I know no one will see me. I feel like a closet eater. Response Group 12: B Group 13 A. I eat three meals a day with only an occasional between meal snack. B. I eat 3 meals a day, but I also normally snack between meals. C. When I am snacking heavily, I get in the habit of skipping regular meals. D. There are regular periods when I seem to be continually eating, with no planned meals. Response Group 13: A Group 14 A. I don't think much about trying to control unwanted eating urges. B. At least some of the time, I feel my thoughts are pre-occupied with trying to control my eating urges. C. I feel that frequently I spend much time thinking about how much I ate or about trying not to eat anymore. D. It seems to me that most of my waking hours are pre-occupied by thoughts about eating or not eating. I feel like I'm constantly struggling not to eat. Response Group 14: D Group 15 A. I don't think about food a great deal. B. I have strong craving for food but they last only for brief periods of time. C. I have days when I can't seem to think about anything else but food. D. Most of my days seem to be pre-occupied with thoughts about food. I feel like I live to eat. Response Group 15: B Group 16 A. I usually know whether or not I'm physically hungry. I take the right portion of food to satisfy me. B. Occasionally, I feel uncertain about knowing whether or not I'm physically hungry. A these times it's hard to know how much food I should take to satisfy me. C. Even though I might know how many calories I should eat, I don't have any idea what is a normal amount of food for me. Response Group 16: C Binge Eating Score: 16 Score less than 17 Minimal Risk Score between 18-26 Moderate Risk Score between 27-46 High Risk Assessment & Plan Assessment & Plan (1) Adjustment disorder: Code(s): F43.20 - Adjustment disorder, unspecified (2) Pre-bariatric surgery psychological evaluation: Code(s): Z71.89 - Other specified counseling Plan The patient has been cleared from a behavioral health standpoint and can be submitted for insurance approval when ready. A follow-up behavioral health visit will be scheduled 1?4 weeks postoperatively to assess psychological adjustment and screen for any concerns. In the meantime she will return in 4 weeks to continue receiving pre-op Bh support. Next appointment: 01/01/25 at 9am, video Telehealth Telehealth Telehealth Platform: [facility] Location of provider rendering services: practice address Location of patient: address on file Patient Identification confirmed using: Name, : Yes Telehealth method: video Patient verbally consented to treatment: Yes Patient verbally consented to billing insurance company: Yes Patient informed of any privacy concerns related to visit: Yes Minutes spent on Phone/Video with Pt.: 55 Coding Level of Care Code Established Pt Tele Psytx >53 mins (66074) Patient Type Established Diagnoses Adjustment disorder F43.20 Pre-bariatric surgery psychological evaluation Z71.89 Additional Codes PHQ-9 - 94489 - PHQ-9 Billing: Yes ([id number]) Time Spent (min) 55
== END 2024-12-04 11:58 | disposition home or self-care (01) ==
LOC: HO.HBST 11:12
PROVIDERS: PCP Internal Medicine; Visit Provider Counselor Mental Health
DX: F43.20 Adjustment disorder, unspecified (principal); Z71.89 Other specified counseling
CPT/HCPCS: 90837

== ENCOUNTER 2024-12-07 08:32 | Outpatient (REF) | payer OTHER, SELFPAY ==
--- NOTE | ~2024-12-07 | US_ITS ---
EXAMINATION: US ABDOMEN COMPLETE WITH LIVER ELASTOGRAPHY HISTORY: E66.01 - Morbid (severe) obesity due to excess calories TECHNIQUE: Real-time grayscale ultrasound imaging of the abdomen was performed and images were reviewed. COMPARISON: There are no prior studies available for comparison. FINDINGS: Liver: The right lobe of the liver measures 17.8 cm in size. The left lobe of the liver measures 11.7 cm in size. The liver demonstrates increased echotexture, consistent with steatosis. There is focal fatty sparing adjacent to the gallbladder. No focal mass or intrahepatic biliary ductal dilatation is identified. There is normal hepatopedal flow in the portal vein. Ultrasound elastography of the liver was performed with 10 separate measurements of the liver parenchyma with the patient in the supine position. Measurements were obtained approximately 2 cm below Rosas's capsule and perpendicular to the capsule. The median shear wave velocity is 1.67 m/s. The interquartile range/median (IQR/median) is 0.07. Gallbladder and biliary tree: The gallbladder is unremarkable, without evidence of calculi, wall thickening, or pericholecystic fluid. There is no sonographic Jameson sign. The common bile duct is nonvisualized. Kidneys: The right kidney measures 11.0 cm in length. The left kidney measures 12.4 cm in length. The kidneys are unremarkable, without evidence of masses, hydronephrosis, or calculi. Pancreas: There is limited visualization of the pancreas. Spleen: The spleen is normal in size and contour, measuring 11.0 cm in length. Abdominal aorta and inferior vena cava: The visualized portions of the abdominal aorta and inferior vena cava are normal in caliber. There is no free fluid in the abdomen. US/US abdomen comp w elastography IMPRESSION: Hepatomegaly and hepatic steatosis. The median shear wave velocity in the liver is 1.67 m/s, corresponding to a median liver stiffness of 8.54 kPa. The IQR/median value is 0.07. This is indicative of a quality data set. Findings are indicative of a low elastography value which rules out advanced chronic liver disease in asymptomatic patients. REFERENCE: Society of Radiologists in Ultrasound Liver Stiffness Thresholds (2020): LIVER STIFFNESS THRESHOLDS: *Shear wave velocity less than 1.3 m/s (Liver Stiffness equal or less than 5 kPa): High probability of being normal. *Shear wave velocity less than 1.7 m/s (Liver Stiffness less than 9 kPa): In the absence of other known clinical signs, rules out compensated advanced chronic liver disease. *Shear wave velocity between 1.7-2.1 m/s (Liver Stiffness 9-13 kPa): Suggestive of compensated advanced chronic liver disease but need further test for confirmation. *Shear wave velocity between 2.1-2.4 m/s (Liver Stiffness 13-17 kPa): Rules in compensated advanced chronic liver disease. *Shear wave velocity greater than 2.4 m/s (Liver Stiffness over 17 kPa): Suggestive of clinically significant portal hypertension. QUALITY OF DATA SET: *IQR/Median value equal or less than 0.15 implies a quality data set. *IQR/Median value over 0.15 implies a poor quality data set. SIGNIFICANT CHANGE FROM PRIOR EXAM: Significant change if liver stiffness measurement is 10% or greater from prior exam. OTHER CONSIDERATIONS: The stage of liver fibrosis may be overestimated in the setting of acute hepatitis, liver inflammation, elevated liver function tests, hepatic vascular congestion, obstructive cholestasis, non-fasting state, and infiltrative diseases such as amyloidosis and lymphoma. In some patients with NAFLD, the liver stiffness thresholds for compensated advanced chronic liver disease may be lower. In causes other than viral hepatitis and NAFLD, liver stiffness thresholds are not well established. Electronically signed by: Som Burt MD 12/07/2024 09:22 AM EDT
== END 2024-12-07 08:33 | disposition home or self-care (01) ==
LOC: HO.US 08:32
PROVIDERS: PCP Internal Medicine; Visit Provider Surgery
DX: E66.01 Morbid (severe) obesity due to excess calories (principal); K21.9 Gastro-esophageal reflux disease without esophagitis; E11.9 Type 2 diabetes mellitus without complications; I10 Essential (primary) hypertension
CPT/HCPCS: 76700; 76981

== ENCOUNTER → 2024-12-07 08:34 | Outpatient (BNV) | payer OTHER, SELFPAY | PROVIDERS: PCP Internal Medicine; Visit Provider Radiology Diagnostic Radiology | DX: R16.0 Hepatomegaly, not elsewhere classified (principal) | CPT/HCPCS: 76700 ==

== ENCOUNTER 2024-12-08 09:41 | Outpatient (REF) | payer OTHER, SELFPAY | END 2024-12-08 09:42 | disposition home or self-care (01) | LOC: HO.LNP 09:41 | PROVIDERS: Surgery; PCP Internal Medicine; Visit Provider Physician Assistant Surgical | DX: I10 Essential (primary) hypertension (principal); E11.9 Type 2 diabetes mellitus without complications; K21.9 Gastro-esophageal reflux disease without esophagitis; E66.01 Morbid (severe) obesity due to excess calories | CPT/HCPCS: 83013 ==

== ENCOUNTER 2025-01-01 09:15 | Outpatient (AMB) | payer OTHER, SELFPAY ==
--- NOTE | 2025-01-01 09:00 | A.OFFWM_ITS ---
Intake Intake Visit Reasons: VIDEO BH F/U Allergies No Known Allergies Allergy (Verified 12/08/24 10:13) [facility] Medical History (Updated 12/08/24 @ 22:59 by Edd Stephens MD) Anxiety Back pain Non-insulin dependent type 2 diabetes mellitus GERD (gastroesophageal reflux disease) Hypertension Morbid obesity Diabetes Surgical History (Updated 05/09/24 @ 14:11 by Yaw Juarez CMA) S/P Family History (Updated 05/09/24 @ 14:13 by Yaw Juarez CMA) Father HTN (hypertension) Mother Diabetes HTN (hypertension) Paternal Uncle Throat cancer Social History (Updated 05/09/24 @ 14:11 by Yaw Juarez CMA) Alcohol intake: never Patient Tobacco Use Status: Never used Tobacco Female Reproductive History Menstrual Age of Menarche: 9 Behavioral Health Assessment Weight Management Therapy Therapy Notes Details Subjective: The patient reports she has been feeling well and is actively seeking [place] classes to support her integration and personal growth. She is adhering to her meal and exercise plan, resulting in a 12-pound weight loss over the past month. The patient expresses motivation and optimism regarding her upcoming weight-loss surgery and has completed the necessary steps for insurance approval. She inquired about control options in the context of her upcoming surgery and future health goals. Objective: The patient attended a pre-operative follow-up visit via telehealth. She appeared engaged, oriented, and demonstrated insight into her health behaviors and surgical preparation. * Discussed current functioning, progress with lifestyle modifications, and readiness for surgery. 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 * Supplied resources and referrals for [place] language classes to enhance her social support and integration. Assessment/Response: * Mental status: Within normal limits. The patient is alert, cooperative, and demonstrates appropriate mood and affect. No evidence of cognitive impairment or psychiatric distress. * Risk reported/identified: None. Food/Weight/Diet Expectations of change PT started the program on 10/16/2024 at 338Lbs, and the initial goal is to lose 10% of her weight before surgery, which is about 38lbs. Ultimate weight goal: 300lbs before surgery. Weight as of 12/01/24: 324Lbs Weight as of 12/29/24: 312Lbs PT would like to be at a healthy BMI and no longer have diabetes and hypertension. PT is implementing the following: Current meal plan: 3 protein shakes, 1 bar (not always), and one meal per day (10FT protein, 5FT salad/5FTcarbs) Exercise plan: Daily walking. scale: yes Communication with provider: Fridays. Assessment & Plan Assessment & Plan (1) Adjustment disorder: Code(s): F43.20 - Adjustment disorder, unspecified Plan Schedule follow-up 1-3 weeks after weight-loss surgery to assess post-operative adjustment, reinforce behavioral strategies, and provide ongoing support. Telehealth Telehealth Telehealth Platform: [employer] Location of provider rendering services: other (Home office. [place], [place]) Location of patient: address on file Patient Identification confirmed using: Name, : Yes Telehealth method: video Patient verbally consented to treatment: Yes Patient verbally consented to billing insurance company: Yes Patient informed of any privacy concerns related to visit: Yes Minutes spent on Phone/Video with Pt.: 45 Coding Level of Care Code Established Pt Tele Psytx 45 mins (35795) Patient Type Established Diagnoses Adjustment disorder F43.20 Time Spent (min) 45
== END 2025-01-01 10:00 | disposition home or self-care (01) ==
LOC: HO.HBST 09:15
PROVIDERS: PCP Internal Medicine; Visit Provider Counselor Mental Health
DX: F43.20 Adjustment disorder, unspecified (principal)
CPT/HCPCS: 90834

== ENCOUNTER → 2025-01-01 09:15 | Outpatient (BNVA) | payer OTHER, SELFPAY | PROVIDERS: PCP Internal Medicine; Visit Provider Counselor Mental Health | DX: F43.20 Adjustment disorder, unspecified (principal); Z13.89 Encounter for screening for other disorder ==

== ENCOUNTER 2025-01-10 11:46 | Outpatient (AMB) | payer OTHER, SELFPAY ==
--- NOTE | 2025-01-10 12:17 | MHC.OFFVISWM ---
VS Expanded 01/10/25 12:18 Height 5 ft 8 in Weight 309 lb 9 oz BMI 47.1 Body Fat % 50 Body Fat Mass 154.9 Fat Free Mass 154.9 Visceral Fat Rating 18 Body Water % 31.9 Body Water Mass 98.8 Basal Metabolic Rate/Score 1,549 Intake Visit Reasons: TV Pre Op LSG 01/16/25 Librarian [facility] Required: Yes Librarian Special Library Services: L[facility] Present Information Interpreted: clinical only Allergies No Known Allergies Allergy (Verified 01/10/25 12:19) Medication List - Last Reconciled 01/10/25 by Edd Stephens MD cholecalciferol (vitamin D3) 125 mcg PO DAILY losartan 25 mg PO DAILY metformin 500 mg PO BID ondansetron 4 mg PO Q12H pantoprazole 40 mg PO DAILY polyethylene glycol 3350 17 grams PO DAILY sucralfate 10 mL PO BID thiamine HCl (vitamin B1) 100 mg PO DAILY tirzepatide (weight loss) (Zepbound) 7.5 mg (0.5 mL) subcut QWEEK vitamin A palmitate 3,000 mcg PO DAILY HPI HPI TV Pre Op LSG 01/16/25: Details: Start time: 12.14pm, End time: 12.34pm ?I spent 15 minutes speaking with the patient on the phone plus an additional 5 minutes reviewing and updating records for a total of 20 minutes HPI Comments Details: Overall weight loss: 28.7lbs, or 8.5% TBWL Is doing the liquid diet with 5 premade Premier shakes PFSH Medical History (Updated 12/08/24 @ 22:59 by Edd Stephens MD) Anxiety Back pain Non-insulin dependent type 2 diabetes mellitus GERD (gastroesophageal reflux disease) Hypertension Morbid obesity Diabetes Surgical History (Updated 05/09/24 @ 14:11 by Yaw Juarez CMA) S/P Family History (Updated 05/09/24 @ 14:13 by Yaw Juarez CMA) Father HTN (hypertension) Mother Diabetes HTN (hypertension) Paternal Uncle Throat cancer Social History (Updated 05/09/24 @ 14:11 by Yaw Juarez CMA) Alcohol intake: never Patient Tobacco Use Status: Never used Tobacco Female Reproductive History Menstrual Age of Menarche: 9 Telehealth Telehealth Telehealth Platform: Telephone Location of provider rendering services: practice address Location of patient: address on file Patient Identification confirmed using: Name, : Yes Telehealth method: voice only Patient verbally consented to treatment: Yes Patient verbally consented to billing insurance company: Yes Patient informed of any privacy concerns related to visit: Yes Minutes spent on Phone/Video with Pt.: 20 Assessment & Plan Assessment & Plan (1) Morbid obesity: Code(s): E66.01 - Morbid (severe) obesity due to excess calories Category: Medical Plan: 1. Plan for lap sleeve gastrectomy including upper GI endoscopy. All tests has been completed and reviewed and the patient is cleared for the surgery. ?If diaphragmatic or ventral hernias are present at time of surgery, these will be repaired laparoscopically as well. 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 I emphasized the importance of close follow-up, adherence to instructions and good communication. So far she has proven to be an excellent communicator and very compliant with all our directions accomplishing a great weight loss. I believe that she is an excellent candidate and she is ready. 2. Preop prescriptions were provided and explained the purpose of each one. Need to be purchased preop. Start Pantoprazole now as you get it from the pharmacy, 1 pill per day. Sucralfate and Zofran are for after surgery as needed. 3. Bowel prep: please do 7 packets ?of Miralax mixing each one with a an 8oz glass of water, crystal light, gatorade zero, or propel ?on 01/14/25 and the same amount on 01/15/25. The Miralax you begin with one packet at a time in 8oz water or crystal light, gatorade zero, or propel ?as early in the day as you can and you do them back to back until you finish them. Continue the protein shakes during ?the bowel prep. 4. Needs to purchase 1oz medicine cups . 5. Needs to purchase Children's liquid Tylenol for postop pain control. 6. She needs to stop the Zepbound and Meformin as of today. Avoid aspirin, motrin, Advil, Aleve, Meloxicam, Excedrin, Ibuprofen, Naproxyn. Tylenol is OK. 7. She needs to purchase the Celebrate multivitamins from the hospital's gift shop, chewable or pills whatever you prefer. 8. Will do basic preop blood work-up any day between 01/11/25 and Wednesday01/12/25 fasting for 12 hours and is scheduled to see the Anesthesiologist prior to the day of surgery. 9. Importance of adherence to postop folllow-up and recommendations was underscored and she understands that. 10. Continue to avoid food and bars and continue with 3 Premier protein shakes (8oz EACH and NOT the whole bottle) at 8am-10am, 11am-1pm and 2pm-4pm and two more WHOLE-BOTTLE Premier protein shakes at 5pm-7pm and 8pm-10pm 11. No soups, broths or V8 12. The patient's?medical?history has been reviewed and they are considered low risk for post op DVT and therefore DVT prophylaxis is not considered necessary. Travel after surgery was reviewed. The patient has not disclosed any travel plans during the first 30 days after surgery and they have been advised that within the first 30 days after surgery any bus, plane, train or car travel over 2 hours in duration is contraindicated due to the possibility of developing blood clots from immobility. Any travel, needs to include periods of ambulation of 10 minutes in duration every 2 hours.? Patient was instructed to discuss any plans for travel during this period with their bariatric surgeon.? 13. As of tomorrow, please check your blood pressure daily in the morning. If your blood pressure is: Below 120/70: do not take the Losartan 121/71 to 135/85: take HALF Losartan Over 136/86: take the whole Losartan 14. Please take at the day of surgery the following medications: Losartan if the blood pressure is high enough to justify it based on the above parameters 14. Stop any control pills and don't use them for one month after surgery 16. Absolutely no smoking or vaping, or marijuana until the surgery and for at least the first 4 weeks. Only nicotine patches are allowed. 17. Send me weight measurements on Wednesday01/12/25 and then on Wednesday01/16/25 the day of surgery before you go to the hospital. 18. Avoid any steroids by mouth for any reason. Let me know if someone prescribes them to you 19. These instructions supersede anything else you read in the handbook, anything you watched in videos or classes or you were told by any other provider. If there is any conflict, you follow the above instructions and nothing else. Orders: Orders Insulin Today E11.9 - Type 2 diabetes mellitus without complications, E66.01 - Morbid (severe) obesity due to excess calories, I10 - Essential (primary) hypertension C Reactive Protein Today E11.9 - Type 2 diabetes mellitus without complications, E66.01 - Morbid (severe) obesity due to excess calories, I10 - Essential (primary) hypertension Hemoglobin A1c Today E11.9 - Type 2 diabetes mellitus without complications, E66.01 - Morbid (severe) obesity due to excess calories, I10 - Essential (primary) hypertension Partial Thromboplastin Time Today E11.9 - Type 2 diabetes mellitus without complications, E66.01 - Morbid (severe) obesity due to excess calories, I10 - Essential (primary) hypertension Prothrombin Time INR Today E11.9 - Type 2 diabetes mellitus without complications, E66.01 - Morbid (severe) obesity due to excess calories, I10 - Essential (primary) hypertension TSH reflex Free T4 Today E11.9 - Type 2 diabetes mellitus without complications, E66.01 - Morbid (severe) obesity due to excess calories, I10 - Essential (primary) hypertension Complete Blood Count Auto Diff Today E11.9 - Type 2 diabetes mellitus without complications, E66.01 - Morbid (severe) obesity due to excess calories, I10 - Essential (primary) hypertension Lipid Panel Today E11.9 - Type 2 diabetes mellitus without complications, E66.01 - Morbid (severe) obesity due to excess calories, I10 - Essential (primary) hypertension Comprehensive Met. Panel Today E11.9 - Type 2 diabetes mellitus without complications, E66.01 - Morbid (severe) obesity due to excess calories, I10 - Essential (primary) hypertension Type and Screen Today E11.9 - Type 2 diabetes mellitus without complications, E66.01 - Morbid (severe) obesity due to excess calories, I10 - Essential (primary) hypertension Medications: New ondansetron Only take one every 12 hours as needed if you have nausea 4 mg PO Q12H 20 tabs 0RF nausea and vomiting R11.0 - Nausea pantoprazole 40 mg PO DAILY 90 tabs 0RF K21.9 - Gastro-esophageal reflux disease without esophagitis sucralfate 10 mL PO BID 600 mL 2RF K21.9 - Gastro-esophageal reflux disease without esophagitis polyethylene glycol 3350 Mix each measuring cup with 8oz of water, Crystal light, or Gatorade zero, or Propel and do 7 measuring cups on 01/14/25 and another 7 measuring cups on 01/15/25 17 grams PO DAILY 238 grams 0RF Z01.818 - Encounter for other preprocedural examination
[2025-01-10 12:18] VITALS: BMI 47.1
== END 2025-01-10 12:35 | disposition home or self-care (01) ==
LOC: HO.HBS 11:46
PROVIDERS: PCP Internal Medicine; Visit Provider Surgery
DX: E66.01 Morbid (severe) obesity due to excess calories (principal); Z68.42 Body mass index [BMI] 45.0-49.9, adult
CPT/HCPCS: 98013

== ENCOUNTER 2025-01-11 09:03 | Outpatient (REF) | payer OTHER, SELFPAY ==
[2025-01-11 09:28] LABS: MANUAL DIFF FLAG NO
[2025-01-11 09:55] LABS: Hematocrit 38.1 % (37.0-47.0); Hemoglobin 12.5 g/dl (12.0-16.0); Red Blood Count 4.12 X10*6/uL (4.20-5.50); White Blood Count 9.5 X10*3/uL (4.8-10.8)
[2025-01-11 09:56] LABS: Imm Gran Abs Auto 0.03 X10*3/uL (0.00-0.03); Imm Gran Pct Auto 0.3 % (0.0-0.4); Lymphocytes Absolute Auto 3.2 X10*3/uL (1.2-4.9); Mean Corpuscular HGB Conc 32.8 g/dl (31.0-35.0); Mean Corpuscular Hemoglobin 30.3 pg (27.0-33.0); Mean Corpuscular Volume 92.5 fL (80.0-98.0); NRBC Abs Auto 0.000 X10*3/uL (0.0-0.012); NRBC Pct Auto 0.0 /100WBC (0.0-0.2); Platelet Count 266 X10*3/uL (160-400)
[2025-01-11 10:00] LABS: INTERNATIONAL NORM RATIO 1.2 (0.9-1.1); Prothrombin Time 13.9 SEC (10.9-12.4)
[2025-01-11 10:03] LABS: Partial Thromboplastin Time 29.5 SEC (26.7-34.1)
[2025-01-11 10:08] LABS: Hemoglobin A1C 140.6246 umol/L; Total Hemoglobin (HGBA1C) 3332.7131 umol/L
[2025-01-11 10:50] LABS: Alanine Aminotransferase 56 U/L (0-31); Albumin Level 4.4 g/dL (3.5-5.0); Alkaline Phosphatase 54 U/L (39-117); Anion Gap 12 (12-20); Aspartate Amino Transferase 36 U/L (5-31); Blood Urea Nitrogen 14 mg/dL (9-16); Calcium 9.3 mg/dL (8.4-10.2); Carbon Dioxide 26 mmol/L (22-29); Chloride 106 mmol/L (96-108); Cholesterol 146 mg/dL (<200); Estimated Glomerular Filt Rate > 60; HDL Cholesterol 41 mg/dL (>40); Potassium 3.8 mmol/L (3.3-5.1); Sodium 140 mmol/L (135-145); Total Protein 7.3 g/dL (6.5-8.0); Triglycerides 77 mg/dL (<150)
== END 2025-01-11 09:04 | disposition home or self-care (01) ==
LOC: HO.LAB 09:03
PROVIDERS: PCP Internal Medicine; Visit Provider Surgery
DX: I10 Essential (primary) hypertension (principal); E11.9 Type 2 diabetes mellitus without complications; E66.01 Morbid (severe) obesity due to excess calories
CPT/HCPCS: 36415; 80053; 80061; 83036; 83525; 84443; 85025; 85610; 85730; 86140

== ENCOUNTER 2025-01-16 08:10 | Day surgery (SDC) | payer OTHER, SELFPAY ==
--- NOTE | 2025-01-12 11:28 | HO.ANESPROP2 ---
Documented by User: Tess Gar NP 01/12/25 11:31 HPI - Anesthesia Eval Consult details Narrative: 29 yr old female for Gastrectomy Sleeve,EGD,possible Diaphragmatic Hernia,possible Ventral Hernia,possible Open BMI 47 Type 2 DM: A1C 6.0% Anesthesia Pre-Procedure Meds Is the patient on any of the following meds?: GLP1/DPP4 PMFSH Active Problems Active Problems: All Active Problems (Updated 12/08/24 @ 22:59 by Edd Stephens MD) Vitamin A deficiency (Acute) Vitamin D deficiency (Acute) H. pylori infection (Acute) Obesity, morbid, BMI 50 or higher (Acute) Vaginal lesion (Acute) control counseling (Acute) Women's annual routine gynecological examination (Acute) Cervical cancer screening (Acute) Encounter for screening examination for sexually transmitted disease (Acute) Anxiety (Acute) Back pain (Acute) Non-insulin dependent type 2 diabetes mellitus (Acute) GERD (gastroesophageal reflux disease) (Acute) Hypertension (Acute) Morbid obesity (Acute) Past Medical History Medical History Anxiety Back pain Non-insulin dependent type 2 diabetes mellitus GERD (gastroesophageal reflux disease) Hypertension Morbid obesity Family History Family History Father HTN (hypertension) Mother Diabetes HTN (hypertension) Paternal Uncle Throat cancer Family history of problems with anesthesia: No Surgical History Surgical History History of esophagogastroduodenoscopy (EGD) S/P History of Problems with Anesthesia: No Social History Social History Alcohol intake: never Patient Tobacco Use Status: Never used Tobacco Use of substances other than those prescribed or required for medical reasons: No Have you been hit, kicked, punched, or otherwise hurt by someone within the past year? If so, by whom?: No Spiritual Healthcare Practices: no Roman Catholic Healthcare Practices: no Cultural Healthcare Practices: no Are you DNR?: No Advance Directives: No (spouse is primary contact) Advance Directives on File: No Patient : No FDLMP: 12/27/24 : No Meds Allergies Allergy/AdvReac Type Severity Reaction Status Date / Time No Known Allergies Allergy Verified 01/16/25 08:22 Home Medications ?Medication ?Instructions ?Recorded ?Confirmed ?Last Taken ?Type metformin 500 mg tablet 500 mg PO BID 05/09/24 01/16/25 1 Day Ago History ~10/25/24 losartan 25 mg tablet 25 mg PO DAILY 09/25/24 01/16/25 Unknown History Exam Pertinent Lab Results Pertinent Lab Results: Laboratory Tests 01/11/25 09:13 Blood Type B Positive Antibody Screen NEGATIVE Laboratory Tests 01/11/25 09:26 WBC 9.5 RBC 4.12 L Hgb 12.5 Hct 38.1 Plt Count 266 Sodium 140 Potassium 3.8 BUN 14 Creatinine 0.62 Narrative Narrative: EKG 10/2024 Vent. Rate : 81 BPM Atrial Rate : 81 BPM P-R Int : 152 ms QRS Dur : 84 ms QT Int : 366 ms P-R-T Axes : 33 -11 2 degrees QTcB Int : 425 ms Normal sinus rhythm Minimal voltage criteria for LVH, may be normal variant ( R in aVL ) Borderline ECG No previous ECGs available Assessment and Plan Final Anesthetic Review Family History of Problems with Anesthesia: No History of Problems with Anesthesia: No Documented by User: Mary Yoder MD 01/16/25 09:58 [facility] Past Medical History Medical History Anxiety Back pain Non-insulin dependent type 2 diabetes mellitus GERD (gastroesophageal reflux disease) Hypertension Morbid obesity Family History Family History Father HTN (hypertension) Mother Diabetes HTN (hypertension) Paternal Uncle Throat cancer Surgical History Surgical History History of esophagogastroduodenoscopy (EGD) S/P Social History Social History Alcohol intake: never Patient Tobacco Use Status: Never used Tobacco Use of substances other than those prescribed or required for medical reasons: No Have you been hit, kicked, punched, or otherwise hurt by someone within the past year? If so, by whom?: No Spiritual Healthcare Practices: no Roman Catholic Healthcare Practices: no Cultural Healthcare Practices: no Are you DNR?: No Advance Directives: No (spouse is primary contact) Advance Directives on File: No Patient : No FDLMP: 12/27/24 : No Meds Allergies Allergy/AdvReac Type Severity Reaction Status Date / Time No Known Allergies Allergy Verified 01/16/25 08:22 Home Medications ?Medication ?Instructions ?Recorded ?Confirmed ?Last Taken ?Type metformin 500 mg tablet 500 mg PO BID 05/09/24 01/16/25 1 Day Ago History ~10/25/24 losartan 25 mg tablet 25 mg PO DAILY 09/25/24 01/16/25 Unknown History Exam Airway Mallampati Class: III TM Dist: >3cm Neck ROM: Full Loose/Missing/Broken Teeth: Yes Heart: RRR Assessment and Plan Assessment Anesthesia Assessment: Anesthesia Plan Discussed and Chart Reviewed Final Anesthetic Review NPO: Yes ASA Class: III Final Preanesthetic Review: Meds/Allgs Chart Reviewed, Consent Obtained/Reviewed and Anes Risks/Benef Reviewed Patient Risk: Intermediate Procedure Risk: Intermediate Anesthetic Plan Anesthetic Plan: GA Disposition: Standard PACU
[2025-01-15 08:56] VITALS: BMI 47.1
[2025-01-16] VITALS (13 sets, daily range): BP systolic 109–132; BP diastolic 58–80; PULSE 93–114; RESP 14–21; TEMP 36.9–37.1; O2SAT 95–97
[2025-01-16 08:46] LABS: UPreg QC Valid YES
[2025-01-16] MEDS: Aprepitant 32 MG/4.4 ML VIAL IVPUSH (08:54)
[2025-01-16] MEDS: Lactated Ringers 1,000 ML 999 ML IV (08:55)
--- NOTE | 2025-01-16 09:58 | MHC.SHP ---
Pre-Procedural Eval Section A - 24 Hr Update-Section A only Date of Service: 01/16/25 The patient is an INPATIENT: Yes The patient has been examined within 24 hours of the surgical procedure. The History & Physical has been completed within 30 days and I have reviewed it.: Yes Section B - Complete if H&P > 30 days Chief Complaint: Morbid (severe) obesity due to excess calories Relevant Family History (Specify if Yes): No Relevant Social History: None Present Medications: None Medical History: No relevant PMH History of Previous Operations: No relevant previous surgery Allergies: Allergies Allergy/AdvReac Type Severity Reaction Status Date / Time No Known Allergies Allergy Verified 01/16/25 08:22 Review of Systems Sugical H&P ROS: Negative: Constitution, Cardiovascular, Respiratory, Neurological, Psychiatric, Hem-Onc, Allergic/Immunologic, Gastrointestinal, Genitourinary, Musculoskeletal, Integumentary, Endocrine and Eyes/Ears/Nose/Throat Exam Surgical H&P Exam: Normal: HEENT, Normal: Heart, Normal: Lungs, Normal: Extremities, Normal: Abdomen, Normal: Skin and Normal: Neurological Plan Diagnosis/Plan: Unchanged I have reviewed the history and physical and performed a pertinent physical examination on my patient. No changes have occurred unless specified. Time Spent With Patient Time: Total time managing care of this patient today ____ minutes.
--- NOTE | 2025-01-16 09:58 | PM.OP ---
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 The program is a phased program with a special focus on preoperative medical weight management to promote substantial weight loss and prepare the patients for the second phase of the program: bariatric surgery. The patient participated in an intensive weekly lifestyle ?intervention and exercise program during which the patient ?has lost between the initial office visit and the last preoperative visit 41.9lbs, or 12.4%% of initial actual body weight. It was deemed appropriate for the patient to now have bariatric surgery. In light of the current Covid-19 pandemic and the well documented strong association of obesity and increased risk of worse outcomes if infected with Covid-19 (REFERENCES:https://pubmed.ncbi.nlm.nih.gov/72481044/,?https://pubmed.ncbi.nlm.nih.gov/50715912/), any delay in undergoing bariatric surgery may lead to the patient's worsening health condition and increased?risk of more severe Covid-19 disease if infected. In addition a recent?study from [facility] published in [facility] on 04/21/2021 ([email or web address]) found that, among patients with obesity, substantial weight loss achieved with surgery was associated with improved outcomes of COVID-19 infection. The findings suggest that obesity can be a modifiable risk factor for the severity of COVID-19 infection. In addition, the patient met the BMI-criteria for bariatric surgery based on the BMI on initial presentation. The patient should not be penalized for achieving such weight loss because ?it is not sustainable long-term without surgical intervention and it was achieved in preparation for bariatric surgery ?under my direction and based on my published research ([email or web address]).[email or web address] and?https://www.soard.org/article/[email or web address](39)83474-X/pdf) ?that a 10% preoperative weight loss improves long-term weight loss after surgery and reduces perioperative complications.? Insurance carriers such as [facility] have endorsed my recommendations ?and have included in their policies criteria to include a 10% preoperative weight loss requirement. PROCEDURE: Esophago-gastroscopy, laparoscopic lysis of adhesions, laparoscopic sleeve gastrectomy and laparoscopic gastropexy INDICATIONS: This is a 29 year-old female who was electively scheduled for laparoscopic, possibly open sleeve gastrectomy. The risks and complications of the procedure were discussed with the patient in advance, particularly the possibility of ; pulmonary embolism; staple line leak; bleeding; GERD; cardiac, pulmonary, or renal complications; as well as long-term problems such as insufficient weight loss, vitamin deficiency, strictures, or ulcers. The patient understood all the risks, and was in agreement to proceed with surgery. DESCRIPTION OF PROCEDURE: After informed consent was obtained from the patient, the patient was given preoperative antibiotics, and was transferred to the operating room. After successful induction of general anesthesia, pneumatic compression devices were placed on both lower extremities. An upper endoscopy was performed next. The oropharynx and esophagus appeared to be within normal limits. There was no diaphragmatic hernia present. The stomach was entered. Then after all fluid and air were suctioned and the stomach was fully decompressed, the scope was withdrawn and secured in the mid esophagus. The patient was then prepped and draped in the usual sterile manner, and abdominal access was established at the right upper quadrant with the Debra technique. A 12 mm blunt port was inserted, and the abdomen was insufflated with CO2 to a pressure of 15 mmHg. Under direct visualization, additional ports were placed, specifically two 5 mm Versi-step ports to the left upper quadrant, and a 5 mm Versi-Step port to the right upper quadrant. 1% lidocaine plain was used to infiltrate all port sites as well as all fascia defects. Following that, the patient was placed in a steep reverse Trendelenburg position. An additional 5 mm port was placed to the right flank for the Mediflex retractor that was used to retract the left lobe of the liver. The gastro-esophageal fat pad was opened with the ultrasonic device (Thunderbeat, Olympus) and the anterior esophagus and hiatus were exposed. The angle of His was opened with the ultrasonic device the fundus of the stomach from any diaphragmatic and splenic attachments. I then opened the gastrocolic ligament between the transverse colon and the greater curvature of the stomach with the ultrasonic device to enter the lesser sac and facilitate the ligation of the short gastric vessels. I started at a mid-point along the greater curvature and using the Thunderbeat, all short gastric vessels were divided all the way to the angle of His until the left maricel was completely dissected at its entirety. I then divided the gastro-colic ligament distally to a distance of about 3-4 cm proximal to the pylorus. There were extensive congenital adhesions between the pancreas and posterior gastric wall. Those were lysed completely with the ultrasonic device. Adhesiolysis took approximately 45 min to complete. The stomach was then divided transversely with one Endo MAYLIN-45 purple and four MAYLIN-60 articulating purple loads using the SIGNIA stapler and loads. Every effort was made that the gastric sleeve had a tubular shape and an even caliber throughout. Once the sleeve resection was completed, the staple line of the gastric sleeve was reinforced with Hemoclips. The resected stomach was retrieved without difficulty from the Debra port. A gastropexy was then performed in order to prevent postoperative GERD and partial gastric volvulus. Several interrupted 2.0 Surgidac sutures were placed between the sleeve's staple line and the previously divided greater omentum and gastro-colic ligament using the Endo-Stitch device. ?An upper endoscopy was performed. There was no narrowing at the GE junction. The scope was easily advanced all the way to the pylorus which was clearly visualized. There was no narrowing anywhere and the sleeve's caliber was even throughout. The sleeve's staple line was inspected and there was no evidence of ischemia, bleeding or dehiscence. At that point the gastroscope was withdrawn from the patient?s mouth while we were decompressing the bowel and the stomach from any remaining air. I looked into the lesser sac to see how the sleeve was situating and it was situating well. There was no bleeding from the staple line, spleen, or short gastric vessels. The Mediflex retractor was removed, and the undersurface of the liver was inspected and there was no bleeding. The patient was placed in supine position. I closed the fascial defect of the 12 mm port site with a figure of eight #1 Polysorb suture. Then 30cc Ropivacaine plain with 10 mg of Dexamethasone were used to infiltrate the fascial closure as well as all skin incisions. At this point, the abdomen was deflated, all ports were removed under direct vision, and no bleeding was noted from any of the port sites. The skin incisions were irrigated with saline and were closed with 4-0 absorbable monofilament sutures. Steri-Strips and OpSites were used to cover all incisions. The patient was extubated and was transferred in stable condition to the recovery room for further care. I was present and performed all vitale parts of the procedure. 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 There were no residents to assist with this case. Miko Stephens MD, PhD, FACS Surgeon: Edd Stephens MD Anesthesia: local and other (TAP block) Was an Afterschool Babysitter used for this Procedure?: No Afterschool Babysitter: Snow De La Torre Estimated blood loss (mL): 10 IV fluids (mL): 2,300 Urine output (mL): 0 (No Roger to record output) Pathology: other (1) Stomach) Condition: stable Disposition: PACU
--- NOTE | 2025-01-16 10:01 | P.PNGS_ITS ---
Subjective Subjective Date of Service: 01/17/25 Interval history: Feels well. Mild incisional pain. She is tolerating phase 1 bariatric diet Physical Exam 2 Vital Signs: Vital Signs: Last Vital Signs Temp 98.5 F 01/16/25 08:33 Pulse 98 01/16/25 08:33 Resp 14 01/16/25 08:33 BP 119/74 01/16/25 08:33 Pulse Ox 97 01/16/25 08:33 O2 Del Method Room Air 01/16/25 08:33 BMI result Body Mass Index 47.1 GI: Inspection: Yes normal to inspection, Yes incision (clean, dry and intact) and Yes obesity Palpation (GI): Soft to palpation Extrem: Right lower extremity: normal to inspection (no calf tenderness) L eft lower extremity: normal to inspection (no calf tenderness) Objective Data Active Medications Lactated Ringer's (Lr) 1,000 mls @ 100 mls/hr IVCONT .Q10H CASPER Lactated Ringer's (Lr) 1,000 mls @ 999 mls/hr IV .Q1H1M CASPER Stop: 01/16/25 10:15 Last Admin: 01/16/25 08:55 Dose: 999 mls/hr Documented By: SAM Labs 01/17/25 05:47 01/17/25 05:47 Labs: Laboratory Results - last 24 hr 01/16/25 01/16/25 08:10 08:47 POC Glucose 89 Urine Test NEGATIVE Procedures Date of Service Date of Service: 01/17/25 Progress Note: A&P Assessment and plan (1) Morbid obesity: Status: Acute Assessment and Plan: s/p laparoscopic sleeve gastrectomy, lysis of adhesions and gastropexy Doing well Will check am labs and if OK the patient will be discharged home (2) Hypertension: Status: Acute (3) Anxiety: Status: Acute (4) Non-insulin dependent type 2 diabetes mellitus: Status: Acute (5) GERD (gastroesophageal reflux disease): Status: Acute (6) Back pain: Status: Acute (7) Steatosis, liver: Status: Acute (8) S/P laparoscopic sleeve gastrectomy: Status: Acute (9) Congenital intra-abdominal adhesions: Status: Acute Time Spent With Patient Time: Total time managing care of this patient today ____ minutes. Quality Stroke Does the patient have a stroke diagnosis?: No VTE Prior VTE?: No VTE Risk Level:: Surgical - moderate VTE Device Contraindication: N/A - Device Ordered VTE Drug Contraindication: N/A - Med Ordered
[2025-01-16] MEDS: Lactated Ringers 1,000 ML 100 ML IVCONT ×2 (10:27→16:59)
--- NOTE | 2025-01-16 12:49 | PHA.MEDREC ---
Addendum entered by Juanito Carmen PharmD 01/16/25 12:51: reviewed Original Note: Pharmacy Consult ? Medication Reconciliation Pharmacy has reviewed the medication reconciliation done by nursing. Claims match med list.
--- NOTE | 2025-01-16 13:23 | P.DS_ITS ---
DS: Providers Provider Primary care physician: Medina Rodriguez MD DS: Diagnosis Discharge Diagnosis (1) Morbid obesity: Status: Acute (2) Hypertension: Status: Acute (3) Anxiety: Status: Acute (4) Non-insulin dependent type 2 diabetes mellitus: Status: Acute (5) GERD (gastroesophageal reflux disease): Status: Acute (6) Back pain: Status: Acute (7) Steatosis, liver: Status: Acute (8) S/P laparoscopic sleeve gastrectomy: Status: Acute (9) Congenital intra-abdominal adhesions: Status: Acute DS: Summary Hospital Course Hospital Course: ADMITTING DIAGNOSIS: morbid obesity, liver steatosis, anxiety, back pain, NIDDM, GERD, HTN DISCHARGE DIAGNOSIS: same, s/p laparoscopic sleeve gastrectomy and gastropexy PAST SURGICAL HISTORY:? PROCEDURE: upper endoscopy, laparoscopic sleeve gastrectomy and gastropexy DISCHARGE SUMMARY: History of Present Illness: The patient is a 29 year-old woman with a BMI of?47.1kg/m2 and associated co- morbidities as described above. The patient had extensive work-up, lost?27.3 lbs preoperatively and was electively scheduled for laparoscopic, possible open sleeve gastrectomy and gastropexy. Risks and complications of the surgery were discussed with the patient in advance, particularly the possibility of , pulmonary embolism, anastomotic leak, bleeding, bowel injury, GERD, cardiac, renal or pulmonary complications. The patient understood all the risks and was in agreement with the surgical plan. Hospital Course: The patient underwent an uneventful laparoscopic sleeve gastrectomy with gastropexy on the day of admission. Postoperatively, the patient was transferred to the surgical floor. The patient received IV acetaminophen and IV Dilaudid for pain control. Patient was started on bariatric phase 1 diet POD #0. On postoperative day one, the patient was feeling well without nausea, vomiting, fevers, or tachycardia. The patient had some mild incisional pain and the abdomen was soft.? ? On the morning of postoperative day one, the patient was continued on 1 ounce of water or ice every half hour. During the day, the patient did fairly well, having some incisional pain, but able to ambulate adequately and to tolerate liquids well. Since the patient is doing well, we decided that the patient was ready to be discharged. The patient was given instructions to follow-up in office next week and to call the office for any fever over 101, persistent abdominal pain, nausea, vomiting, GERD, symptoms of DVT such as calf tenderness, or leg swelling, or pulmonary embolism such as chest pain or shortness of breath.? The patient was also instructed to drink 40-60 ounces of liquids per day using the 1-ounce cups. The patient had been given prescriptions for Tylenol for pain, Zofran prn for nausea, and pantoprazole and carafate previously. The patient was encouraged to ambulate and use the incentive spirometer. The patient was allowed to shower, but no baths, and encouraged to stay active at home. All of these instructions were given to the patient personally. All questions were answered and the patient understood all instructions, the instructions were also given to the patient in print. Physical Exam Vital Signs: Vital Signs: Last Vital Signs Temp 98.4 F 01/16/25 12:50 Pulse 105 H 01/16/25 13:05 Resp 16 01/16/25 13:05 BP 119/61 01/16/25 13:05 Pulse Ox 96 01/16/25 13:05 O2 Del Method Simple Mask 01/16/25 13:05 O2 Flow Rate 4 01/16/25 13:05 BMI result Body Mass Index 47.1 DS: Data Data Completed and Pending Pending studies at discharge: Pending at discharge 01/16/25 12:11 Surgical [PTH] Routine Labs on day of discharge: Laboratory Results - last 24 hr 01/16/25 01/16/25 08:10 08:47 POC Glucose 89 Urine Test NEGATIVE Discharge Plan Discharge Patient Disposition: Home, Self-Care Referrals: Medina Rodriguez MD [Primary Care Provider, Internal Medicine] - 1 Week Discharge Medications: No Action cholecalciferol (vitamin D3) 125 mcg (5,000 unit) capsule 125 mcg PO DAILY Qty: 90 0RF thiamine HCl (vitamin B1) 100 mg tablet 100 mg PO DAILY Qty: 90 0RF vitamin A palmitate 3,000 mcg (10,000 unit) capsule 3,000 mcg PO DAILY Qty: 90 0RF Zepbound 7.5 mg/0.5 mL pen injector 7.5 mg subcut SCHREIBER metformin 500 mg tablet 1,000 mg PO BID losartan 25 mg tablet 25 mg PO DAILY sucralfate 100 mg/mL suspension 10 ml PO BID Qty: 600 2RF pantoprazole 40 mg tablet,delayed release (DR/EC) 40 mg PO DAILY Qty: 90 0RF polyethylene glycol 3350 17 gram/dose powder 17 g PO DAILY Qty: 238 0RF Rx Instructions: Mix each measuring cup with 8oz of water, Crystal light, or Gatorade zero, or Propel and do 7 measuring cups on 01/14/25 and another 7 measuring cups on 01/15/25 ondansetron 4 mg tablet,disintegrating 4 mg PO Q12H Qty: 20 0RF Rx Instructions: Only take one every 12 hours as needed if you have nausea Activity on Discharge: No heavy lifting Activity Restrictions/Additional Instructions: No tub baths, sex or returning to work until discussed at first post op appointment. No alcohol, tobacco or illegal drug use. Continue to use incentive spirometer hourly while awake. Walk in home for 5- 10 minutes every 2 hours during the first week. Wear abdominal binder with activity. Follow all meal plan instructions from your bariatric surgeon. Review bariatric handbook and call with any questions. Discharge Instructions 1. Please call your doctor or come back to the emergency room should any new symptoms arise. 2. Activity: abstain from alcohol,? limited stair climbing, no bending, no driving, no exercise, no illicit substances, no lifting, no sex, no tub bath, no work. 4. Diet: follow your bariatric surgeon's recommendations for advancing diet. 5. Dressing Change/Wound Care: Your incisions are covered with waterproof dressings. You can shower with these and pat dry. Do not rub over dressings or incisions. If the area is tender, you may apply an ice pack for short intervals (no more than 20 minutes on, followed by at least 20 minutes off). Do not apply heat. Do not use creams, lotions, or topical antibiotics unless instructed to do so by your surgeon. 6. Call your doctor if: - Your temperature exceeds 101.5 F - You experience excessive pain or swelling - You have an unexpected reaction to medication - You have excessive bleeding - You experience continued vomiting/nausea - Your incision begins to separate - Your incision shows signs of infection such as increased redness, swelling, excessive pain, heat, or drainage (light blood or clear fluid is normal) General instructions: No lifting greater than 10 lbs for the next 6 weeks[address] driving within 24 hours of taking narcotic pain medications. If you do not move your bowels in the next 2 days, please take milk of magnesia over the counter. Please follow the post op diet and do not advance your diet until instructed by your surgeon or until you are seen in the office in about 1 week. Please walk around your home every hour or two to prevent blood clots from forming in your legs. You do not need to wake from sleeping to walk. Please sleep in a bed or couch to prevent kinking at the hips and knees. Please take your incentive spirometer (your lung dehydration plant operator) home with you and use it for the next few days to prevent pneumonias. You may shower; no hot tubs, baths or swimming pools. Please make sure you are consuming 40-60 ounces of total fluids per day. Avoid all carbonation. Please call the office with any questions or concerns such as increasing abdominal pain, fever, chills, shortness of breath, chest pain, leg pain or swelling, or redness or drainage from your incisions. Do not hesitate to contact the office with any questions at . The patient's medical history has been reviewed and they are considered low risk for post op DVT and therefore DVT prophylaxis is not considered necessary. Travel after surgery was reviewed. The patient has not disclosed any travel p lans during the first 30 days after surgery and they have been advised that within the first 30 days after surgery any bus, plane, train or car travel over 2 hours in duration is contraindicated due to the possibility of developing blood clots from immobility. Any travel, needs to include periods of ambulation of 10 minutes in duration every 2 hours.? The patient was instructed to discuss any plans for travel during this period with their bariatric surgeon. Print Language: Polish
[2025-01-16 14:40] LABS: Hematocrit 42.6 % (37.0-47.0); Hemoglobin 13.6 g/dl (12.0-16.0)
[2025-01-16 14:55] LABS: Anion Gap 16 (12-20); Blood Urea Nitrogen 7 mg/dL (9-16); Calcium 8.9 mg/dL (8.4-10.2); Carbon Dioxide 21 mmol/L (22-29); Chloride 106 mmol/L (96-108); Creatinine Clr Calc Pharmacy 194.7; Estimated Glomerular Filt Rate > 60; Potassium 3.7 mmol/L (3.3-5.1); Sodium 139 mmol/L (135-145)
[2025-01-16] MEDS: 0.9 % Sodium Chloride Flush 3 ML SYRINGE IVFLUSH ×2 (16:59→20:24)
--- NOTE | 2025-01-17 01:57 | PC.NURSE ---
Pt reeducated with a french speaking staff member about phase 1 bariatric diet and encouraged to take PO water and to document on the checklist.
[2025-01-17 02:27] VITALS: BP 116/60; PULSE 79; RESP 18; TEMP 36.4; O2SAT 96
[2025-01-17] MEDS: Lactated Ringers 1,000 ML 100 ML IVCONT (03:07)
[2025-01-17 03:17] VITALS: BP 135/81; PULSE 84; RESP 18; TEMP 36.4; O2SAT 97
[2025-01-17 06:30] LABS: MANUAL DIFF FLAG NO
[2025-01-17 06:39] LABS: Hematocrit 39.5 % (37.0-47.0); Hemoglobin 13.0 g/dl (12.0-16.0); Imm Gran Abs Auto 0.03 X10*3/uL (0.00-0.03); Imm Gran Pct Auto 0.4 % (0.0-0.4); Lymphocytes Absolute Auto 1.4 X10*3/uL (1.2-4.9); Mean Corpuscular HGB Conc 32.9 g/dl (31.0-35.0); Mean Corpuscular Hemoglobin 31.0 pg (27.0-33.0); Mean Corpuscular Volume 94.0 fL (80.0-98.0); NRBC Abs Auto 0.000 X10*3/uL (0.0-0.012); NRBC Pct Auto 0.0 /100WBC (0.0-0.2); Platelet Count 239 X10*3/uL (160-400); Red Blood Count 4.20 X10*6/uL (4.20-5.50); White Blood Count 8.3 X10*3/uL (4.8-10.8)
[2025-01-17 06:54] LABS: Anion Gap 13 (12-20); Blood Urea Nitrogen 4 mg/dL (9-16); Calcium 9.2 mg/dL (8.4-10.2); Carbon Dioxide 21 mmol/L (22-29); Chloride 107 mmol/L (96-108); Creatinine Clr Calc Pharmacy 204.5; Estimated Glomerular Filt Rate > 60; Potassium 4.3 mmol/L (3.3-5.1); Sodium 137 mmol/L (135-145)
[2025-01-17] MEDS: 0.9 % Sodium Chloride Flush 3 ML SYRINGE IVFLUSH (07:07)
[2025-01-17 07:38] VITALS: BP 108/65; PULSE 81; RESP 16; TEMP 36.2; O2SAT 97
[2025-01-17 07:43] LABS: Glucose, Whole Blood 87 mg/dL (60-115)
--- NOTE | 2025-01-17 08:28 | HO.POSTANES ---
Post Anesthesia Evaluation Post Anesthesia Evaluation Date of Service: 01/17/25 Vital Signs: Vital Signs Temp Pulse Resp BP Pulse Ox O2 Del Method 01/17/25 07:38 97.2 F 81 16 108/65 97 Room Air 01/17/25 03:17 97.6 F 84 18 135/81 97 Room Air 01/17/25 02:27 97.6 F 79 18 116/60 96 Room Air Anesthesia: General Mental Status: Awake Pain Control: Satisfactory Nausea/Vomiting: None Hydration: Adequate Anesthesia-Related Issues: No Anes. Related Issues
--- NOTE | 2025-01-17 09:46 | MHC.CM.PN ---
CM MET WITH PT AT BEDSIDE WITH GERIATRIC CASE MANAGER. PT LIVES WITH SPOUSE AND IS FUNCTIONALLY INDEPENDENT. NO SERVICES. PT DECLINES COMPLETION OF A HCP AT THIS TIME. PCP DR. MAY. DP: PT HAS BEEN MEDICALLY CLEARED FOR DC HOME, NO SERVICES. PT'S SPOUSE WILL TRANSPORT.
== END 2025-01-17 09:50 | disposition home or self-care (01) ==
LOC: HO.SSS 13:23 → HO.S3 15:39
PROVIDERS: Nurse Practitioner; Physician Assistant Surgical; PCP Internal Medicine; Visit Provider Surgery
PROC: (CPT 43845; principal; 2025-01-16 10:20)
DX: E66.01 Morbid (severe) obesity due to excess calories (principal); Z68.42 Body mass index [BMI] 45.0-49.9, adult; Q43.3 Congenital malformations of intestinal fixation; I10 Essential (primary) hypertension; E11.9 Type 2 diabetes mellitus without complications; K21.9 Gastro-esophageal reflux disease without esophagitis; K76.0 Fatty (change of) liver, not elsewhere classified; K74.00 Hepatic fibrosis, unspecified; F41.9 Anxiety disorder, unspecified; M19.90 Unspecified osteoarthritis, unspecified site; M54.9 Dorsalgia, unspecified; Z79.84 Long term (current) use of oral hypoglycemic drugs; Z79.85 Long-term (current) use of injectable non-insulin antidiabetic drugs; Z79.899 Other long term (current) drug therapy
CPT/HCPCS: 43775; 43659; 49329; 36415; 80048; 81025; 82947; 85014; 85018; 85025; 86850; 86900; 86901; 88304; 88307; 88342; A4649; C9145; J0131; J0690; J1100; J1171; J1308; J2003; J2250; J2371; J2405; J2704; J2795; J3010; J7120

== ENCOUNTER → 2025-01-16 08:10 | Outpatient (BNV) | payer OTHER, SELFPAY | PROVIDERS: PCP Internal Medicine; Visit Provider Surgery | DX: E66.01 Morbid (severe) obesity due to excess calories (principal); I10 Essential (primary) hypertension; F41.9 Anxiety disorder, unspecified; E11.9 Type 2 diabetes mellitus without complications; K21.9 Gastro-esophageal reflux disease without esophagitis; M54.9 Dorsalgia, unspecified; K76.0 Fatty (change of) liver, not elsewhere classified; Z98.84 Bariatric surgery status; Q43.3 Congenital malformations of intestinal fixation | CPT/HCPCS: 43659; 43775; 99024 ==

== ENCOUNTER 2025-01-24 14:48 | Outpatient (AMB) | payer OTHER, SELFPAY ==
--- NOTE | 2025-01-24 14:57 | A.OFFVIS_ITS ---
VS Expanded 01/24/25 15:08 BP 126/78 Blood Pressure Location Rt brachial Blood Pressure Position Sitting Pulse 89 Pulse Source Pulse Oximeter Temp 97.3 F Temperature Source Temporal Artery Scan Pulse Oximetry 100 Oxygen Delivery Method Room Air Height 5 ft 8 in Weight 283 lb 6.4 oz BMI 43.1 Body Fat % 84.1 Body Fat Mass 136.2 Fat Free Mass 147.0 Visceral Fat Rating 13.0 Body Water % 37.3 Body Water Mass 105.6 Muscle Mass/Score 139.6 Basal Metabolic Rate/Score 2,129 Intake Visit Reasons: (OV) PO LSG 01/16/25 Allergies No Known Allergies Allergy (Verified 01/16/25 08:22) Medication List - Last Reconciled 01/24/25 by VELVET Wood losartan 25 mg PO DAILY Held on 01/17/25. Instructions: Resume on 01/18/25. Check your blood pressure every morning as soon as you wake up and send it to Dr. Stephens. Do no take the blood pressure medication if the blood pressure is below 120/70. Wait every day to hear back from Dr. Stephens before you take the medication. ondansetron 4 mg PO Q12H pantoprazole 40 mg PO DAILY sucralfate 10 mL PO BID HPI Comments Details: Pt is s/p LSG 01/18/2025, 6 days postop. Some gas pain. No nausea. Tolerating 3 Premier shakes with 4oz mixed in 4oz UAM, 1 scoop each in 8oz liquid. Hydration is adequate- 40 oz. [facility] Medical History (Updated 01/18/25 @ 00:00 by Stacey Vidal) Anxiety Back pain Non-insulin dependent type 2 diabetes mellitus GERD (gastroesophageal reflux disease) Hypertension Morbid obesity Surgical History (Updated 01/24/25 @ 15:02 by Mirtha Landry CMA) S/P laparoscopic sleeve gastrectomy History of esophagogastroduodenoscopy (EGD) S/P Family History Father HTN (hypertension) Mother Diabetes HTN (hypertension) Paternal Uncle Throat cancer Social History Household Members: Spouse and Children Housing: Apartment Are you a primary family day care worker to a significant other at home: No Do you presently have visiting nurse or other home services: No Alcohol intake: never Patient Tobacco Use Status: Never used Tobacco service: No Female Reproductive History Menstrual Age of Menarche: 9 Physical Exam Vital Signs: Last Vital Signs Temp 97.3 F 01/24/25 15:08 Pulse 89 01/24/25 15:08 BP 126/78 01/24/25 15:08 Pulse Ox 100 01/24/25 15:08 Oxygen Delivery Method Room Air 01/24/25 15:08 BMI result Body Mass Index 43.1 Assessment & Plan Assessment & Plan (1) Morbid obesity: Code(s): E66.01 - Morbid (severe) obesity due to excess calories Category: Medical (2) S/P laparoscopic sleeve gastrectomy: Code(s): Z98.84 - Bariatric surgery status Category: Surgical Plan May shower tomorrow but no bath or submersion of abdomen in water. May start exercise in 2 days.? No abdominal exercises x 6 weeks. Abdominal binder for the next 2 weeks with activity or exercise. Continue meal plan per Dr Colindres until next f/u in 5 weeks. Reviewed pantoprazole and carafate dosing. Reminded of the pace of drinking 2 mL/min or 1oz per 15 min. Pt okay to make broth at home- max 8oz per day. Will be emailed link for post op video for review.
[2025-01-24 15:08] VITALS: BP 126/78; PULSE 89; TEMP 36.3; O2SAT 100; BMI 43.1
== END 2025-01-24 15:42 | disposition home or self-care (01) ==
PROVIDERS: PCP Internal Medicine; Visit Provider Physician Assistant Surgical
DX: E66.01 Morbid (severe) obesity due to excess calories (principal); Z68.41 Body mass index [BMI] 40.0-44.9, adult; Z90.3 Acquired absence of stomach [part of]; Z98.84 Bariatric surgery status
CPT/HCPCS: 99024

== ENCOUNTER → 2025-01-24 14:48 | Outpatient (BNVA) | payer OTHER, SELFPAY | PROVIDERS: PCP Internal Medicine; Visit Provider Physician Assistant Surgical | DX: E66.01 Morbid (severe) obesity due to excess calories (principal); Z68.41 Body mass index [BMI] 40.0-44.9, adult; Z90.3 Acquired absence of stomach [part of] | CPT/HCPCS: 99212 ==

== ENCOUNTER 2025-01-25 09:14 | Outpatient (AMB) | payer OTHER, SELFPAY ==
--- NOTE | 2025-01-25 09:00 | MHC.WMTHER ---
Intake Intake Visit Reasons: TV PO LSG 01/16/25 Allergies No Known Allergies Allergy (Verified 01/16/25 08:22) PFSH Medical History (Updated 01/18/25 @ 00:00 by Stacey Vidal) Anxiety Back pain Non-insulin dependent type 2 diabetes mellitus GERD (gastroesophageal reflux disease) Hypertension Morbid obesity Surgical History (Updated 01/24/25 @ 15:02 by Mirtha Landry CMA) S/P laparoscopic sleeve gastrectomy History of esophagogastroduodenoscopy (EGD) S/P Family History Father HTN (hypertension) Mother Diabetes HTN (hypertension) Paternal Uncle Throat cancer Social History Household Members: Spouse and Children Housing: Apartment Are you a primary home care provider to a significant other at home: No Do you presently have visiting nurse or other home services: No Alcohol intake: never Patient Tobacco Use Status: Never used Tobacco service: No Female Reproductive History Menstrual Age of Menarche: 9 Behavioral Health Assessment Weight Management Therapy Therapy Notes Details Subjective: The patient underwent weight loss surgery on 01/16/2025. Her weight on the day of surgery was 296 lbs; as of 01/24/2025, her weight is 283 lbs. She denies any pain or complications during recovery and reports tolerating the liquid diet well. She describes her mood as tired but overall positive. She has support from her and a close friend. The patient denies feeling hunger but notes difficulty with the sweet taste of protein shakes, expressing a preference for savory flavors. Objective: The patient presents for a behavioral health post-operative follow-up visit. A guided emotional check-in was conducted to assess her current functioning, recovery, mood, and emotional state. Psychoeducation was provided on the emotional and psychological adjustments commonly experienced after bariatric surgery. We also focused on distinguishing between hunger and cravings or food thoughts, exploring possible reasons for these experiences, and strategies to work on her mindset. Emphasis was placed on becoming mindful of her physical and mental needs during these times while staying on track. The importance of adhering to the Weight Management Program (WMP) providers' instructions was emphasized, including the pace of drinking and following the meal and exercise plan. Tips and recommendations for long-term success were also discussed. Program resources were provided, and the patient was invited to join our Facebook group to stay informed about ongoing events and activities. Assessment/Response: Mental status: WNL Risk reported/identified: None Assessment & Plan Assessment & Plan (1) Adjustment disorder: Code(s): F43.20 - Adjustment disorder, unspecified Plan PT will return in 2-3 weeks for support post-op. Next alistair: 02/12/25 at 11am, telehealth Telehealth Telehealth Telehealth Platform: [email or web address] Location of provider rendering services: other (Home office. [place], [place]) Location of patient: address on file Patient Identification confirmed using: Name, : Yes Telehealth method: video Patient verbally consented to treatment: Yes Patient verbally consented to billing insurance company: Yes Patient informed of any privacy concerns related to visit: Yes Minutes spent on Phone/Video with Pt.: 30 Coding Level of Care Code Established Pt Tele Psytx 30 mins ([id number]) Patient Type Established Diagnoses Adjustment disorder F43.20 Time Spent (min) 30
== END 2025-01-25 09:28 | disposition home or self-care (01) ==
LOC: HO.HBST 09:14
PROVIDERS: PCP Internal Medicine; Visit Provider Counselor Mental Health
DX: F43.20 Adjustment disorder, unspecified (principal)
CPT/HCPCS: 90832

== ENCOUNTER 2025-02-09 09:06 | Outpatient (REF) | payer OTHER, SELFPAY ==
[2025-02-09 10:28] LABS: Alanine Aminotransferase 79 U/L (0-31); Albumin Level 3.8 g/dL (3.5-5.0); Alkaline Phosphatase 49 U/L (39-117); Anion Gap 13 (12-20); Aspartate Amino Transferase 60 U/L (5-31); Blood Urea Nitrogen 5 mg/dL (9-16); Calcium 9.0 mg/dL (8.4-10.2); Carbon Dioxide 30 mmol/L (22-29); Chloride 105 mmol/L (96-108); Estimated Glomerular Filt Rate > 60; Potassium 3.4 mmol/L (3.3-5.1); Sodium 145 mmol/L (135-145); Total Protein 6.4 g/dL (6.5-8.0)
[2025-02-09 10:31] LABS: Hemoglobin A1C 131.8298 umol/L; Total Hemoglobin (HGBA1C) 3391.7267 umol/L
== END 2025-02-09 09:07 | disposition home or self-care (01) ==
LOC: HO.10HDL 09:06
PROVIDERS: Visit Provider Internal Medicine
DX: E11.9 Type 2 diabetes mellitus without complications (principal); R74.01 Elevation of levels of liver transaminase levels; R80.8 Other proteinuria; I10 Essential (primary) hypertension
CPT/HCPCS: 36415; 80053; 83036

== ENCOUNTER 2025-03-02 13:20 | Outpatient (AMB) | payer OTHER, SELFPAY ==
--- NOTE | 2025-03-02 13:10 | A.OFFWM_ITS ---
Intake Intake Visit Reasons: VIDEO PO LSG 01/16/25 Allergies No Known Allergies Allergy (Verified 01/16/25 08:22) PFSH Medical History (Updated 02/01/25 @ 00:02 by Background Young) Anxiety Back pain Non-insulin dependent type 2 diabetes mellitus GERD (gastroesophageal reflux disease) Hypertension Morbid obesity Surgical History (Updated 02/01/25 @ 00:02 by Background Young) S/P laparoscopic sleeve gastrectomy History of esophagogastroduodenoscopy (EGD) S/P Family History Father HTN (hypertension) Mother Diabetes HTN (hypertension) Paternal Uncle Throat cancer Social History Household Members: Spouse and Children Housing: Apartment Are you a primary memory care program director to a significant other at home: No Do you presently have visiting nurse or other home services: No Alcohol intake: never Patient Tobacco Use Status: Never used Tobacco service: No Female Reproductive History Menstrual Age of Menarche: 9 Behavioral Health Assessment Weight Management Therapy Therapy Notes Details Subjective: The patient reports her current weight is 270 lbs. She underwent bariatric surgery on 01/16/2025. She states she is feeling well in terms of mood and daily functioning, and expresses a desire to continue receiving behavioral health support following her surgery. Objective: The patient attended a behavioral health post-operative session via telehealth. Interventions included supportive counseling to reinforce positive post-surgical adjustment and address any emerging concerns. CBT-based strategies were used to help the patient identify and challenge unhelpful thoughts related to body image and lifestyle changes. Psychoeducation was provided on maintaining healthy routines, managing expectations, and recognizing early signs of emotional distress. Coping skills for stress management and relapse prevention were reviewed, and the importance of ongoing self-monitoring and support was emphasized. Assessment/Response: * Mental status: Alert and oriented ?4. Appearance appropriate. Mood stable, affect congruent. Thought process logical and coherent. No evidence of psychosis. Insight and judgment intact. * Risk reported/identified: No suicidal or homicidal ideation, self-harm, or other safety concerns identified. Assessment & Plan Assessment & Plan (1) Adjustment disorder: Code(s): F43.20 - Adjustment disorder, unspecified (2) Status post bariatric surgery: Code(s): Z98.84 - Bariatric surgery status Plan Continue post-operative behavioral health support. * Next appointment scheduled for 05/11/2024 at 1:00 PM via video. Telehealth Telehealth Telehealth Platform: [employer] Location of provider rendering services: other (Home office. [place], [place]) Location of patient: address on file Patient Identification confirmed using: Name, : Yes Telehealth method: video Patient verbally consented to treatment: Yes Patient verbally consented to billing insurance company: Yes Patient informed of any privacy concerns related to visit: Yes Minutes spent on Phone/Video with Pt.: 45 [place] [address] Tele Psytx 45 mins Patient Type Established Diagnoses Adjustment disorder F43.20 Status post bariatric surgery Z98.84 Time Spent (min) 45
== END 2025-03-02 14:30 | disposition home or self-care (01) ==
LOC: HO.HBST 13:20
PROVIDERS: PCP Internal Medicine; Visit Provider Counselor Mental Health
DX: F43.20 Adjustment disorder, unspecified (principal); Z98.84 Bariatric surgery status
CPT/HCPCS: 90834

== ENCOUNTER 2025-03-09 11:43 | Outpatient (AMB) | payer OTHER, SELFPAY ==
--- NOTE | 2025-03-09 11:41 | A.OFFVIS_ITS ---
VS Expanded 03/09/25 11:44 Height 5 ft 8 in Weight 264 lb BMI 40.1 Intake Visit Reasons: TV PO LSG 01/16/25 Automotive Glass Specialist Required: Yes Automotive Glass Specialist Name: Chung Carmona [phone] Information Interpreted: clinical only Allergies No Known Allergies Allergy (Verified 01/16/25 08:22) Medication List - Last Reconciled 03/09/25 by VELVET Wood losartan 25 mg PO DAILY Held on 01/17/25. Instructions: Resume on 01/18/25. Check your blood pressure every morning as soon as you wake up and send it to Dr. Stephens. Do no take the blood pressure medication if the blood pressure is below 120/70. Wait every day to hear back from Dr. Stephens before you take the medication. pantoprazole 40 mg PO DAILY sucralfate 10 mL PO BID HPI Comments Details: This?is a?29?yo F who is s/p LSG 01/16/2025. Presents for 7w post op visit. Weight loss of 18.6lb since last OV 6w ago. No complaints of nausea, emesis, abdominal pain or reflux, or constipation. BP- went back to taking losartan daily per recommendation of her PCP. Present meal plan includes: Premier shakes x3, 4oz/4oz [facility] PP bar she wants to know when she can eat rice and things like that Exercise routine includes: treadmill 4x/week 300 aspen [facility] Medical History (Updated 02/01/25 @ 00:02 by Background Young) Anxiety Back pain Non-insulin dependent type 2 diabetes mellitus GERD (gastroesophageal reflux disease) Hypertension Morbid obesity Surgical History (Updated 02/01/25 @ 00:02 by Background Young) S/P laparoscopic sleeve gastrectomy History of esophagogastroduodenoscopy (EGD) S/P Family History Father HTN (hypertension) Mother Diabetes HTN (hypertension) Paternal Uncle Throat cancer Social History Household Members: Spouse and Children Housing: Apartment Are you a primary health care marketing specialist to a significant other at home: No Do you presently have visiting nurse or other home services: No Alcohol intake: never Patient Tobacco Use Status: Never used Tobacco service: No Female Reproductive History Menstrual Age of Menarche: 9 Telehealth Telehealth Telehealth Platform: Telephone Location of provider rendering services: other Location of patient: address on file Patient Identification confirmed using: Name, : Yes Telehealth method: voice only Patient verbally consented to treatment: Yes Patient verbally consented to billing insurance company: Yes Patient informed of any privacy concerns related to visit: Yes Minutes spent on Phone/Video with Pt.: 18 Assessment & Plan Assessment & Plan (1) Morbid obesity: Code(s): E66.01 - Morbid (severe) obesity due to excess calories Category: Medical (2) S/P laparoscopic sleeve gastrectomy: Code(s): Z98.84 - Bariatric surgery status Category: Surgical Plan Pt to continue communicating with Dr Colindres, follow meal plan. We discussed that her current exercise level is insufficient and she should be burning 2000 aspen/week. Cleared for all activity, no restrictions. Discussed avoiding rice but she can ask Dr Colindres about advancing to soft solid proteins at next weekly check in. RTC 2mo. TV at May 30 1pm 30 min, and TV August 06 at 1:30pm 30 min (pt aware of both).
[2025-03-09 11:44] VITALS: BMI 40.1
== END 2025-03-09 11:50 | disposition home or self-care (01) ==
LOC: HO.HBS 11:43
PROVIDERS: PCP Internal Medicine; Visit Provider Physician Assistant Surgical
DX: E66.01 Morbid (severe) obesity due to excess calories (principal); Z68.41 Body mass index [BMI] 40.0-44.9, adult; Z90.3 Acquired absence of stomach [part of]; Z98.84 Bariatric surgery status
CPT/HCPCS: 99024